=== PATIENT | male | born 1955 | race Caucasian/White ===

== ENCOUNTER → 2017-01-11 | Day surgery (SDC) | payer BC ==
[2017-01-07 14:53] VITALS: BMI 29.0
[~2017-01-11] VITALS: Ht 177.8 cm; Wt 93.2 kg
[~2017-01-11] MED LIST: ATROPINE SULFATE 0.1 MG/ML 5ML SYR IV PRN; DIPH25TA61 PO; EpHEDrine SULFATE INJ 50 MG/ML AMP IV PRN; LIDOCAINE HCL 2% 2 ML VIAL (20MG/ML) ONE; PROPOFOL IV EMULSION 10 MG/ML 20 ML VIAL IV ONE; REDCAP2 PO; SALI0.6515 NAE; SODIUM CHLORIDE 0.9% 500ML 500 ML IV ONE
[2017-01-11 08:30] VITALS: Ht 177.8 cm; Wt 93.2 kg
--- NOTE | 2017-01-11 08:42 | Endo History and Physical ---
History & Physical Date of Service: Jan 11, 2017. Chief Complaint: Odynophagia and Screening Referring Physician: Dr. Painting History of Present Illness 61 yo CM who presents for EGD secondary to odynophagia and screening colonoscopy. Past Surgical History Hx Cardiac Surgery: No Hx Internal Defibrillator: No Hx Pacemaker: No Hx Abdominal Surgery: No Hx of Implantable Prosthesis: No Hx Post-Op Nausea and Vomiting: No Hx Cancer Surgery: No Hx Thoracic Surgery: No Hx Orthopedic: No Hx Urinary Tract Surgery: No Family History None Social History Smoking Status: Never Smoker Hx Substance Use: No Hx Alcohol Use: No Allergies Coded Allergies: Penicillins (Verified Allergy, Unknown, SWELLING AND HIVES, 01/07/17) Current Medications Reported Home Medications Medications Dose Route/Sig Max Daily Dose Days Date Category Allergy (Diphenhydramine Hcl) 25 Mg Tab 1 Tab PO DAILY PRN 01/07/17 Reported Red Yeast Rice (Red Yeast Rice Extract) 600 Mg Cap 1 Cap PO DAILY 01/07/17 Reported Saline Mist (Saline) 0.65 % Spr 1 [place] AHSAN DAILY PRN 01/07/17 Reported Vital Signs Weight (Kilograms): 93.18 Height (Feet): 5 Height (Inches): 10 Physical Exam General Appearance: WD/WN, no apparent distress Respiratory/Chest: Auscultation: breath sounds normal Cardiovascular: Heart Auscultation: RRR Abdomen: Bowel Sounds: normal Inspection & Palpation: soft, non-distended, no tenderness, guarding & rebound Assessment and Plan Assessment: 61 yo CM who presents for EGD secondary to odynophagia and screening colonoscopy. Plan: Proceed with EGD and colonoscopy.
--- NOTE | 2017-01-11 09:52 | Discharge Instructions ---
Endoscopy Patient Instructions Date / Procedure(s) Performed Jan 11, 2017. Colonoscopy, EGD Allergy Information Coded Allergies: Penicillins (Verified Allergy, Unknown, SWELLING AND HIVES, 01/07/17) Discharge Date / Findings Jan 11, 2017. EGD: Esophageal stricture s/p dilation, Reflux esophagitis s/p biopsies Colonoscopy: Colon polyps, Internal hemorrhoids Medication Instructions 1) Start Protonix 40mg by mouth daily 1/2 hour prior to breakfast. 2) OK to resume all medications today as prescribed Reported Home Medications Medications Dose Route/Sig Max Daily Dose Days Date Category Allergy (Diphenhydramine Hcl) 25 Mg Tab 1 Tab PO DAILY PRN 01/07/17 Reported Red Yeast Rice (Red Yeast Rice Extract) 600 Mg Cap 1 Cap PO DAILY 01/07/17 Reported Saline Mist (Saline) 0.65 % Spr 1 [place] AHSAN DAILY PRN 01/07/17 Reported Provider Instructions Activity Restrictions - No exercising or heavy lifting for 24 hours. - Do not drink alcohol the day of the procedure. - Do not drive a car or operate machinery until the day after the procedure. - Do not make any important decisions or sign important papers in 24 hours after the procedure. Following Day: - Return to full activity which may include returning to work/school. Diet Start your diet with liquids and light foods (jello, soup, juice, toast). Then eat your usual diet if not nauseated. Treatment For Common After Affects For mild abdominal pain, bloating, or excessive gas: - Rest - Eat lightly - Lie on right side Follow-Up Information Follow-up with DR. FELA MONREAL as scheduled Anesthesia Information What You Should Know You have had a procedure that required some medicine to reduce anxiety and discomfort. This treatment is called moderate sedation. After receiving the treatment, you may be sleepy, but you will be able to breathe on your own. The effects of the treatment may last for several hours. Follow these instructions along with Activity/Diet recommendations noted above: * Do NOT do anything where dizziness or clumsiness would be dangerous. * Rest quietly at home today, then you can be up and about tomorrow. * Have a responsible person stay with you the rest of today. * You may have had an I.V. today. If so, you may take the dressing off later today. Recommendations Call your doctor if: * Trouble breathing * Continuous vomiting for more than 24 hours * Temperature above 101 degrees * Severe abdominal pain or bloating * Pain not relieved by pain medicine ordered * There is increased drainage or redness from any incision * A large amount of rectal bleeding greater than 2-3 tablespoons. (If you had a polyp/s removed or have hemorrhoids, a small amount of blood - from the rectum is to be expected.) * You have any unanswered questions or concerns. IN THE EVENT OF A SERIOUS EMERGENCY, GO TO THE NEAREST EMERGENCY ROOM Your discharge instructions were prepared by provider Anand Marion. Patient Instructions Signature Page Alex Bray Patient (or Guardian) Signature/Date: I have read and understand the instructions given to me by my caregivers. Caregiver/RN/Doctor Signature/Date: The above-named patient and/or guardian has received patient instructions on this date. + Original Patient Signature Page (only) stays with chart. Please make copy for patient.
--- NOTE | 2017-01-11 09:58 | GI REPORT ---
Procedure Date: 01/11/2017 8:51 AM Procedure: Colonoscopy Indications: Screening for colorectal malignant neoplasm Medicines: Monitored Anesthesia Care Complications: No immediate complications. Estimated Blood Loss: Estimated blood loss: none. Procedure: Pre-Anesthesia Assessment: - Prior to the procedure, a History and Physical was performed, and patient medications and allergies were reviewed. The patient's tolerance of previous anesthesia was also reviewed. The risks and benefits of the procedure and the sedation options and risks were discussed with the patient. All questions were answered, and informed consent was obtained. Prior Anticoagulants: The patient has taken no previous anticoagulant or antiplatelet agents. ASA Grade Assessment: II - A patient with mild systemic disease. After reviewing the risks and benefits, the patient was deemed in satisfactory condition to undergo the procedure. After I obtained informed consent, the scope was passed under direct vision. Throughout the procedure, the patient's blood pressure, pulse, and oxygen saturations were monitored continuously. The scope was introduced through the anus and advanced to the terminal ileum. The colonoscopy was performed without difficulty. The patient tolerated the procedure well. The quality of the bowel preparation was good. The terminal ileum, ileocecal valve, appendiceal orifice, and rectum were photographed. Findings: Two sessile polyps were found in the cecum. The polyps were 5 to 10 mm in size. These polyps were removed with a hot snare. Resection and retrieval were complete. Two sessile polyps were found in the sigmoid colon. The polyps were 5 to 8 mm in size. These polyps were removed with a hot snare. Resection and retrieval were complete. A 20 mm polyp was found in the sigmoid colon. The polyp was pedunculated. The polyp was removed via lift with 4 ml of [id number] Epinephrine and cut technique using a hot snare. Resection and retrieval were complete. To prevent bleeding after the polypectomy, one hemostatic clip was successfully placed (MR conditional). There was no bleeding at the end of the procedure. Non-bleeding internal hemorrhoids were found during retroflexion. The hemorrhoids were small. Impression: - Two 5 to 10 mm polyps in the cecum, removed with a hot snare. Resected and retrieved. - Two 5 to 8 mm polyps in the sigmoid colon, removed with a hot snare. Resected and retrieved. - One 20 mm polyp in the sigmoid colon, removed using lift and cut and a hot snare. Resected and retrieved. Clip (MR conditional) was placed. - Non-bleeding internal hemorrhoids. Recommendation: - Resume previous diet. - Continue present medications. - Repeat colonoscopy for surveillance based on pathology results. - Return to primary care physician as previously scheduled. Anand Marion, DO 01/11/2017 9:58:31 AM This report has been signed electronically. Note Initiated On: 01/11/2017 8:51 AM I attest to the content of the Intraoperative Record and orders documented therein, exceptions below
--- NOTE | 2017-01-11 10:02 | GI REPORT ---
Procedure Date: 01/11/2017 8:52 AM Procedure: Upper GI endoscopy Indications: Odynophagia Medicines: Monitored Anesthesia Care Complications: No immediate complications. Estimated Blood Loss: Estimated blood loss: none. Procedure: Pre-Anesthesia Assessment: - Prior to the procedure, a History and Physical was performed, and patient medications and allergies were reviewed. The patient's tolerance of previous anesthesia was also reviewed. The risks and benefits of the procedure and the sedation options and risks were discussed with the patient. All questions were answered, and informed consent was obtained. Prior Anticoagulants: The patient has taken no previous anticoagulant or antiplatelet agents. ASA Grade Assessment: II - A patient with mild systemic disease. After reviewing the risks and benefits, the patient was deemed in satisfactory condition to undergo the procedure. After obtaining informed consent, the endoscope was passed under direct vision. Throughout the procedure, the patient's blood pressure, pulse, and oxygen saturations were monitored continuously. The scope was introduced through the mouth, and advanced to the second part of duodenum. The upper GI endoscopy was accomplished without difficulty. The patient tolerated the procedure well. Findings: LA Grade C (one or more mucosal breaks continuous between tops of 2 or more mucosal folds, less than 75% circumference) esophagitis with no bleeding was found. Biopsies were taken with a cold forceps for histology. One moderate benign-appearing, intrinsic stenosis was found. This measured 1.4 cm (inner diameter) x 1 cm (in length) and was traversed. A TTS dilator was passed through the scope. Dilation with an 18-19-20 mm balloon (to a maximum balloon size of 20 mm) dilator was performed. The dilation site was examined and showed moderate improvement in luminal narrowing. The stomach was normal. The examined duodenum was normal. Impression: - LA Grade C reflux esophagitis. Biopsied. - Benign-appearing esophageal stenosis. Dilated. - Normal stomach. - Normal examined duodenum. Recommendation: - Resume previous diet. - Use Protonix (pantoprazole) 40 mg PO daily. - Continue present medications. - Await pathology results. - Return to primary care physician as previously scheduled. Anand Marion DO 01/11/2017 10:01:44 AM This report has been signed electronically. Note Initiated On: 01/11/2017 8:52 AM I attest to the content of the Intraoperative Record and orders documented therein, exceptions below
--- NOTE | 2017-01-11 10:08 | Anesthesiology Progress Note ---
Anesthesia Post Op Note Date & Time Jan 11, 2017 at 10:08 Vital Signs Pain Intensity: 0 Vital Signs Past 12 Hours Date Time Temp Pulse Resp B/P (MAP) Pulse Ox O2 Delivery O2 Flow Rate FiO2 01/11/17 09:53 71 16 119/79 (92) 97 Room Air 01/11/17 08:41 36.6 91 20 163/95 (117) 98 Room Air Notes Mental Status: alert / awake / arousable, participated in evaluation Pt Amnestic to Procedure: Yes Nausea / Vomiting: adequately controlled Pain: adequately controlled Airway Patency, RR, SpO2: stable & adequate BP & HR: stable & adequate Hydration State: stable & adequate Anesthetic Complications: no major complications apparent
[2017-01-11 10:25] VITALS: BP 126/97; PULSE 55; O2SAT 97
== END | disposition home or self-care (01) ==
LOC: C.GI 08:18
PROVIDERS: ATTEND Internal Medicine
DX: Z12.11 Encounter for screening for malignant neoplasm of colon (principal); D12.0 Benign neoplasm of cecum; D12.5 Benign neoplasm of sigmoid colon; K20.9 Esophagitis, unspecified; K64.8 Other hemorrhoids; K21.0 Gastro-esophageal reflux disease with esophagitis; K22.2 Esophageal obstruction

== ENCOUNTER → 2017-07-01 | Day surgery (SDC) | payer BC ==
[~2017-07-01] VITALS: Ht 177.8 cm; Wt 95.5 kg
[~2017-07-01] MED LIST changes: -ATROPINE SULFATE 0.1 MG/ML 5ML SYR IV PRN; -EpHEDrine SULFATE INJ 50 MG/ML AMP IV PRN; +PANT40TA PO; -PROPOFOL IV EMULSION 10 MG/ML 20 ML VIAL IV ONE; +PROPOFOL IV EMULSION 10 MG/ML 20 ML VIAL ONE
[2017-07-01 12:10] VITALS: Ht 177.8 cm; Wt 95.5 kg
--- NOTE | 2017-07-01 12:33 | Endo History and Physical ---
History & Physical Date of Service: July 01, 2017. Chief Complaint: HX OF POLYPS 6 MONTH FOLLOW UP Referring Physician: DR MONREAL History of Present Illness 62 yo CM who presents for colonoscopy secondary to history of colon polyps. Past Surgical History Hx Cardiac Surgery: No Hx Internal Defibrillator: No Hx Pacemaker: No Hx Abdominal Surgery: No Hx of Implantable Prosthesis: No Hx Post-Op Nausea and Vomiting: No Hx Cancer Surgery: No Hx Thoracic Surgery: No Hx Orthopedic: No Hx Urinary Tract Surgery: No Family History None Social History Smoking Status: Former Smoker Hx Substance Use: No Hx Alcohol Use: Yes (OCCASIONAL) Allergies Coded Allergies: Penicillins (Verified Allergy, Unknown, SWELLING AND HIVES, 07/01/17) Current Medications Reported Home Medications Medications Dose Route/Sig Max Daily Dose Days Date Category Protonix (Pantoprazole Sodium) 40 Mg Tab 40 Mg PO DAILY 06/23/17 Reported Allergy (Diphenhydramine Hcl) 25 Mg Tab 1 Tab PO DAILY PRN 01/07/17 Reported Red Yeast Rice (Red Yeast Rice Extract) 600 Mg Cap 1 Cap PO DAILY 01/07/17 Reported Saline Mist (Saline) 0.65 % Spr 1 [place] AHSAN DAILY PRN 01/07/17 Reported Vital Signs Weight (Kilograms): 95.45 Height (Feet): 5 Height (Inches): 10 Date Time Temp Pulse Resp B/P (MAP) Pulse Ox O2 Delivery O2 Flow Rate FiO2 07/01/17 12:16 36.5 66 18 170/92 (118) 97 Room Air Physical Exam General Appearance: WD/WN, no apparent distress Respiratory/Chest: Auscultation: breath sounds normal Cardiovascular: Heart Auscultation: RRR Abdomen: Bowel Sounds: normal Inspection & Palpation: soft, non-distended, no tenderness, guarding & rebound Assessment and Plan Assessment: 62 yo CM who presents for colonoscopy secondary to history of colon polyps. Plan: Proceed with colonoscopy.
--- NOTE | 2017-07-01 13:19 | Discharge Instructions ---
Endoscopy Patient Instructions Date / Procedure(s) Performed July 01, 2017. Colonoscopy Allergy Information Coded Allergies: Penicillins (Verified Allergy, Unknown, SWELLING AND HIVES, 07/01/17) Discharge Date / Findings July 01, 2017. Colon polyps Diverticulosis Internal hemorrhoids Medication Instructions OK to resume all medications today as prescribed Reported Home Medications Medications Dose Route/Sig Max Daily Dose Days Date Category Protonix (Pantoprazole Sodium) 40 Mg Tab 40 Mg PO DAILY 06/23/17 Reported Allergy (Diphenhydramine Hcl) 25 Mg Tab 1 Tab PO DAILY PRN 01/07/17 Reported Red Yeast Rice (Red Yeast Rice Extract) 600 Mg Cap 1 Cap PO DAILY 01/07/17 Reported Saline Mist (Saline) 0.65 % Spr 1 [place] AHSAN DAILY PRN 01/07/17 Reported Provider Instructions Activity Restrictions - No exercising or heavy lifting for 24 hours. - Do not drink alcohol the day of the procedure. - Do not drive a car or operate machinery until the day after the procedure. - Do not make any important decisions or sign important papers in 24 hours after the procedure. Following Day: - Return to full activity which may include returning to work/school. Diet Start your diet with liquids and light foods (jello, soup, juice, toast). Then eat your usual diet if not nauseated. Treatment For Common After Affects For mild abdominal pain, bloating, or excessive gas: - Rest - Eat lightly - Lie on right side Follow-Up Information Follow-up with DR MONREAL as scheduled Anesthesia Information What You Should Know You have had a procedure that required some medicine to reduce anxiety and discomfort. This treatment is called moderate sedation. After receiving the treatment, you may be sleepy, but you will be able to breathe on your own. The effects of the treatment may last for several hours. Follow these instructions along with Activity/Diet recommendations noted above: * Do NOT do anything where dizziness or clumsiness would be dangerous. * Rest quietly at home today, then you can be up and about tomorrow. * Have a responsible person stay with you the rest of today. * You may have had an I.V. today. If so, you may take the dressing off later today. Recommendations Call your doctor if: * Trouble breathing * Continuous vomiting for more than 24 hours * Temperature above 101 degrees * Severe abdominal pain or bloating * Pain not relieved by pain medicine ordered * There is increased drainage or redness from any incision * A large amount of rectal bleeding greater than 2-3 tablespoons. (If you had a polyp/s removed or have hemorrhoids, a small amount of blood - from the rectum is to be expected.) * You have any unanswered questions or concerns. IN THE EVENT OF A SERIOUS EMERGENCY, GO TO THE NEAREST EMERGENCY ROOM Your discharge instructions were prepared by provider Anand Marion. Patient Instructions Signature Page Alex Bray Patient (or Guardian) Signature/Date: I have read and understand the instructions given to me by my caregivers. Caregiver/RN/Doctor Signature/Date: The above-named patient and/or guardian has received patient instructions on this date. + Original Patient Signature Page (only) stays with chart. Please make copy for patient.
--- NOTE | 2017-07-01 13:28 | GI REPORT ---
Patient Name: Alex Bray Procedure Date: 07/01/2017 12:24 PM Date of : 1955 Admit Type: Outpatient Age: 62 Gender: Male Attending MD: Anand Marion DO Procedure: Colonoscopy Providers: Anand Marion DO Referring MD: Surinder Painting Indications: High risk colon cancer surveillance: Personal history of colonic polyps, Last colonoscopy: December 2016 Medicines: Monitored Anesthesia Care Complications: No immediate complications. Estimated Blood Loss: Estimated blood loss: none. Procedure: Pre-Anesthesia Assessment: - Prior to the procedure, a History and Physical was performed, and patient medications and allergies were reviewed. The patient's tolerance of previous anesthesia was also reviewed. The risks and benefits of the procedure and the sedation options and risks were discussed with the patient. All questions were answered, and informed consent was obtained. Prior Anticoagulants: The patient has taken no previous anticoagulant or antiplatelet agents. ASA Grade Assessment: II - A patient with mild systemic disease. After reviewing the risks and benefits, the patient was deemed in satisfactory condition to undergo the procedure. After I obtained informed consent, the scope was passed under direct vision. Throughout the procedure, the patient's blood pressure, pulse, and oxygen saturations were monitored continuously. The Scope was introduced through the anus and advanced to the terminal ileum. The colonoscopy was performed without difficulty. The patient tolerated the procedure well. The quality of the bowel preparation was good. The terminal ileum, ileocecal valve, appendiceal orifice, and rectum were photographed. Findings: The perianal and digital rectal examinations were normal. A 5 mm polyp was found in the transverse colon. The polyp was sessile. The polyp was removed with a hot snare. Resection and retrieval were complete. A 5 mm polyp was found in the sigmoid colon at site of prior polypectomy site. The polyp was sessile. The polyp was removed with a hot snare. Resection and retrieval were complete. Multiple small-mouthed diverticula were found in the sigmoid colon. Non-bleeding internal hemorrhoids were found during retroflexion. The hemorrhoids were small. Impression: - One 5 mm polyp in the transverse colon, removed with a hot snare. Resected and retrieved. - One 5 mm polyp in the sigmoid colon, removed with a hot snare. Resected and retrieved. - Diverticulosis in the sigmoid colon. - Non-bleeding internal hemorrhoids. Recommendation: - Resume previous diet. - Continue present medications. - Repeat colonoscopy for surveillance based on pathology results. - Return to primary care physician as previously scheduled. Anand Marion, DO 07/01/2017 1:28:06 PM This report has been signed electronically. Note Initiated On: 07/01/2017 12:24 PM Number of Addenda: 0 I attest to the content of the Intraoperative Record and orders documented therein, exceptions below {[id number]}
[2017-07-01 13:58] VITALS: BP 152/64; PULSE 72; O2SAT 100
--- NOTE | 2017-07-01 14:09 | Anesthesiology Progress Note ---
Anesthesia Post Op Note Date & Time July 01, 2017 at 14:08 Vital Signs Vital Signs Past 12 Hours Date Time Temp Pulse Resp B/P (MAP) Pulse Ox O2 Delivery O2 Flow Rate FiO2 07/01/17 13:58 72 20 152/64 (93) 100 Room Air 07/01/17 13:40 60 20 161/91 (114) 98 Room Air 07/01/17 13:25 71 20 117/64 (81) 97 Room Air 07/01/17 12:16 36.5 66 18 170/92 (118) 97 Room Air Notes Mental Status: alert / awake / arousable, participated in evaluation Pt Amnestic to Procedure: Yes Nausea / Vomiting: adequately controlled Pain: adequately controlled Airway Patency, RR, SpO2: stable & adequate BP & HR: stable & adequate Hydration State: stable & adequate Anesthetic Complications: no major complications apparent
== END | disposition home or self-care (01) ==
LOC: C.GI 11:55
PROVIDERS: ATTEND Internal Medicine
DX: Z09 Encounter for follow-up examination after completed treatment for conditions other than malignant neoplasm (principal); Z86.010 Personal history of colon polyps; D12.3 Benign neoplasm of transverse colon; K63.5 Polyp of colon; K57.30 Diverticulosis of large intestine without perforation or abscess without bleeding; K64.8 Other hemorrhoids; Z88.0 Allergy status to penicillin; M19.90 Unspecified osteoarthritis, unspecified site; Z87.891 Personal history of nicotine dependence

== ENCOUNTER 2018-06-22 07:27 | Inpatient (IN) ==
[2018-06-22] MEDS ORDERED: ONDANSETRON INJ 2 MG/ML 2 ML VIAL IV STA (07:40)
--- NOTE | 2018-06-22 07:40 | Emergency Department Note ---
History of Present Illness General Chief complaint: Vomiting Stated complaint: DIARRHEA,VOMITING (3 DAYS) Time Seen by Provider: 06/22/18 07:34 History of Present Illness Maximum Pain Intensity: 5 63-year-old male who presents to emergency department with his for evaluation of persistent watery diarrhea and vomiting for the past 3 days. The patient reports that he initially developed diarrhea Wednesday evening. By Wednesday morning, he had persistent vomiting. The patient now reports weakness. He has also noticed brownish appearing vomit. He does report a prior history of GERD, but has not had any recent symptoms of such. He has not noticed any blood or melena stools. Patient has had chills but has not checked his temperature at home. The patient also reports some mild shortness of breath with his weakness. The patient denies prior history of GI bleed. He is status post laparoscopic cholecystectomy last fall. His last EGD and colonoscopy performed approximately 1.[address] Marion, and was normal. The patient denies any recent significant consumption of caffeine, alcohol or NSAIDs. The patient rates his overall discomfort a 5 out of 10. Home Medications Home Medications Medication Instructions Recorded Confirmed Type diphenhydramine HCl [Benadryl] 25 mg PO DIRECTED PRN 12/09/17 06/22/18 History metoprolol tartrate 25 mg PO BID 12/09/17 06/22/18 History pantoprazole [Protonix] 40 mg PO DAILY 12/09/17 06/22/18 History red yeast rice 600 mg PO DAILY 12/09/17 06/22/18 History sodium chloride [Saline Nasal] 1 spray INTRANASAL DIRECTED PRN 12/09/17 06/22/18 History lisinopril-hydrochlorothiazide 1 tab PO DAILY 06/22/18 06/22/18 History Allergies Allergy/AdvReac Type Severity Reaction Status Date / Time Penicillins Allergy Severe SWELLING Verified 06/22/18 08:00 AND HIVES Past Med/Surg History Medical History Renal mass Hyperlipidemia GERD (gastroesophageal reflux disease) Uncontrolled hypertension (Acute) Gallstone pancreatitis (Acute) Acid reflux Arthritis Surgical History Status post cholecystectomy Social History Preferred Language: Uzbek Communication Ability: Effective Visual Impairment: Limited Nurse Consultant Required: No Beliefs That Will Affect Care: Judaism Judaism Beliefs: Scientology marital status: Current Living Situation: Spouse current occupational status: employed Other Information That Helps Us Care for You: No Feels Safe at Home: Yes Safety Concerns: Feels Safe At This Time Smoking Status: Never smoker Do You Dip or Chew Tobacco: No Second Hand Exposure: No Tobacco Cessation Education Requested by Patient: No Hx Alcohol Use: No Hx Substance Use: No Review of Systems HEENT: Denies dizziness, visual problems, hearing loss, tinnitus. Denies difficulty swallowing or oral lesions. PULMONARY: Denies cough, shortness of breath, sputum production or hemoptysis. CARDIOVASCULAR: Denies chest pain, palpitations, dyspnea on exertion, orthopnea or peripheral edema. GASTROINTESTINAL: See HPI. GENITOURINARY: Denies dysuria, frequency, urgency or nocturia. NEUROLOGIC: Denies history of epilepsy, CVA, TIA or chronic headaches. MUSCULOSKELETAL: Denies history of significant joint tenderness/swelling. SKIN: Denies rashes or lesions. PSYCHIATRIC: Denies history of depression or mental illness. ENDOCRINE: Denies history of diabetes or thyroid disorders. Physical Exam Vital Signs Vital Signs - 24 hr 06/22/18 07:32 06/22/18 08:30 06/22/18 09:35 Temperature 36.3 C L Temperature Source Oral Sepsis Recent Fever Within 48 Hours No Sepsis Action Taken by Nursing No Action Required Pulse Rate 90 Pulse Rate [Apical] 83 81 Pulse Rhythm [Apical] Pulse Strength [Apical] Respiratory Rate 20 16 16 Respiratory Effort / Characteristics Non-Labored Respiratory Depth Normal Respiratory Pattern Blood Pressure 87/55 L Blood Pressure [Left Arm] 88/35 L 108/51 L Blood Pressure [Right Arm] Blood Pressure Mean 65 Blood Pressure Mean [Left Arm] 52 70 Blood Pressure Mean [Right Arm] Blood Pressure Position [Left Arm] Blood Pressure Position [Right Arm] Pulse Oximetry 97 Oxygen Delivery Method 06/22/18 10:15 06/22/18 11:15 06/22/18 11:30 Temperature 36.5 C Temperature Source Oral Sepsis Recent Fever Within 48 Hours Sepsis Action Taken by Nursing Pulse Rate 73 Pulse Rate [Apical] 74 65 Pulse Rhythm [Apical] Regular Pulse Strength [Apical] Normal Respiratory Rate 16 17 Respiratory Effort / Characteristics Non-Labored Spontaneous Respiratory Depth Normal Respiratory Pattern Regular Blood Pressure Blood Pressure [Left Arm] 107/55 L 111/67 Blood Pressure [Right Arm] Blood Pressure Mean Blood Pressure Mean [Left Arm] 72 81 Blood Pressure Mean [Right Arm] Blood Pressure Position [Left Arm] Sitting Blood Pressure Position [Right Arm] Pulse Oximetry 95 Oxygen Delivery Method Room Air 06/22/18 15:14 Temperature 36.3 C L Temperature Source Oral Sepsis Recent Fever Within 48 Hours Sepsis Action Taken by Nursing Pulse Rate Pulse Rate [Apical] 66 Pulse Rhythm [Apical] Pulse Strength [Apical] Respiratory Rate 18 Respiratory Effort / Characteristics Respiratory Depth Respiratory Pattern Blood Pressure Blood Pressure [Left Arm] Blood Pressure [Right Arm] 110/64 Blood Pressure Mean Blood Pressure Mean [Left Arm] Blood Pressure Mean [Right Arm] 79 Blood Pressure Position [Left Arm] Blood Pressure Position [Right Arm] Lying Pulse Oximetry 93 Oxygen Delivery Method Room Air CONSTITUTIONAL: Healthy and well nourished. Alert and oriented X 3. HEENT: Normocephalic, atraumatic. Pupils equal, round and reactive. Ears and nares are clear. No scleral icterus or conjunctival injection/pallor. Mucous membranes are dry. No posterior pharyngeal erythema or tonsillar hypertrophy. NECK: Full active range of motion without discomfort. LYMPHATICS: No cervical chain adenopathy. RESPIRATORY: Clear to auscultation bilaterally with no wheezing, crackles, rhonchi or stridor. CARDIOVASCULAR: Regular rate and rhythm with no murmurs, rubs or gallops. GASTROINTESTINAL: Bowel sounds present in all quadrants. Patient has generalized tenderness to palpation of the abdomen without any focal findings. Negative McBurney's point tenderness. Negative CVA tenderness. No rigidity, guarding or rebound. MUSCULOSKELETAL: Full range of motion of all joints without discomfort. INTEGUMENTARY: No rash or other significant dermatologic conditions noted. HEMATOLOGIC: No ecchymosis or petechiae. PSYCHIATRIC: Positive affect. NEUROLOGIC: Cranial nerves II-XII grossly intact. No focal neurologic deficits noted. Course Patient history and physical exam were performed. Nurse's notes were reviewed. Vital signs were reviewed, showing hypertension with a blood pressure of 87/55. The patient is afebrile. IV access was established, and labs were drawn. The patient was hydrated with 2 L of normal saline. He was also administered IV Zofran. Review of labs shows a markedly elevated leukocytosis over 29,000 with left shift and bandemia. Review of labs shows a creatinine of 7.78 and BUN of 107. Sodium is 133, and glucose is 139. Lipase is mildly elevated at 590, otherwise LFTs are normal. Troponin is normal, and ECG did not show any acute findings. The patient was unable to provide a urine sample. The patient did report improvement of symptoms after his first liter of normal saline and Zofran. Recheck of his blood pressure was normal. The patient was tolerating p.o. fluids. The case was discussed with Dr. Landry, ED attending physician, who also evaluated the patient and agrees with hospitalist consultation/admission. The case was discussed with Dr. Reed, [facility] hospitalist. Please see hospitalist service dictations for further treatment and final disposition. Administered Medications Sodium Bicarbonate 75 meq/ (Dextrose/Sodium Chloride) 1,075 mls @ 125 mls/hr IV .Q8H36M PRESTON Stop: 07/22/18 13:59 Last Admin: 06/22/18 14:05 Dose: 125 mls/hr Documented by: [id number] Discontinued Medications Sodium Chloride (Nss 1000ml) 2,000 mls @ 999 mls/hr IV .Q2H1M PRESTON Stop: 06/22/18 09:45 Last Infusion: 06/22/18 09:46 Dose: 0 mls/hr Documented by: [id number] Admin: 06/22/18 07:48 Dose: 999 mls/hr Documented by: [id number] Sodium Chloride (Nss 1000ml) 1,000 mls @ 999 mls/hr IV .Q1H1M PRESTON Stop: 06/22/18 14:00 Last Infusion: 06/22/18 14:05 Dose: 0 mls/hr Documented by: [id number] Admin: 06/22/18 13:00 Dose: 999 mls/hr Documented by: [id number] Infusion: 06/22/18 13:00 Dose: 999 mls/hr Documented by: [id number] Admin: 06/22/18 12:59 Dose: 999 mls/hr Documented by: [id number] Ondansetron HCl (Zofran) 4 mg IV NOW STA Stop: 06/22/18 07:41 Last Admin: 06/22/18 07:54 Dose: 4 mg Documented by: [id number] Medical Decision Making Medical Records Attestation: I reviewed the patient's medical records. Home Medications Current Medication List: was personally reviewed by me Laboratory Data Attestation: I reviewed the patient's lab results. Result diagrams: 06/22/18 13:57 06/22/18 13:57 Lab Results 06/22/18 06/22/18 06/22/18 Range/Units 07:45 07:45 08:10 WBC 29.34 H (4.8-10.8) K/uL RBC 6.18 H (4.7-6.1) M/uL Hgb 17.6 (14.0-18.0) g/dL Hct 49.4 (42-52) % MCV 79.9 L (80-100) fL MCH 28.5 (25-34) pg MCHC 35.6 (32-36) g/dL RDW Std Deviation 40.8 (36.4-46.3) fL RDW Coeff of Yuri 14.2 (11.5-14.5) % Plt Count 347 (130-400) K/uL MPV 11.7 H (7.4-10.4) fL Immature Gran % (Auto) 0.4 % Neut % (Auto) 87.1 % Lymph % (Auto) 4.9 % [place] % (Auto) 6.6 % Eos % (Auto) 0.9 % Baso % (Auto) 0.1 % Immature Gran # (Auto) 0.12 H (0.00-0.02) K/uL Neut # (Auto) 25.57 H (1.4-6.5) K/uL Lymph # (Auto) 1.43 (1.2-3.4) K/uL [place] # (Auto) 1.94 H (0.11-0.59) K/uL Eos # (Auto) 0.26 (0-0.5) K/uL Baso # (Auto) 0.02 (0-0.2) K/uL PT (9.0-12.0) Seconds INR (0.9-1.1) APTT (21.0-31.0) Seconds PTT Ratio Sodium 133 L (136-145) mmol/L Potassium 4.2 (3.5-5.1) mmol/L Chloride 99 (98-107) mmol/L Carbon Dioxide 20 L (21-32) mmol/L Anion Gap 13.0 H (3-11) BUN 107 H (7-18) mg/dl Creatinine 7.78 H* (0.6-1.4) mg/dl Est Cr Clr Drug Dosing Not Reportable Est GFR ( Amer) 7.6 Est GFR (Non-Af Amer) 6.6 BUN/Creatinine Ratio 13.9 (10-20) Glucose 139 H (70-99) mg/dl Calcium 8.8 (8.5-10.1) mg/dl Magnesium 2.3 (1.8-2.4) mg/dl Total Bilirubin 1.0 (0.2-1) mg/dl Direct Bilirubin (0-0.2) mg/dl AST 13 L (15-37) U/L ALT 22 (12-78) U/L Alkaline Phosphatase 134 H (45-117) U/L POC Troponin I < 0.03 (0-0.045) ng/ml NT-Pro-B Natriuret Pep 193 (0-900) pg/ml Total Protein 8.9 H (6.4-8.2) gm/dl Albumin 4.1 (3.4-5.0) gm/dl Globulin 4.8 H (2.5-4.0) gm/dl Albumin/Globulin Ratio 0.9 (0.9-2) Lipase 590 H (73-393) U/L Urine Color Urine Appearance (Clear) Urine pH (4.5-7.5) Ur Specific Calvin (1.000-1.030) Urine Protein (Negative) Urine Glucose (UA) (Negative) Urine Ketones (Negative) Urine Blood (Negative) Urine Nitrite (Negative) Urine Bilirubin (Negative) Urine Urobilinogen (Negative) Ur Leukocyte Esterase (Negative) Urine WBC (Auto) (0-5) /hpf Urine RBC (Auto) (0-4) /hpf U Hyaline Cast (Auto) (0-5) /lpf U Epithel Cells (Auto) (0-5) /lpf Urine Bacteria (Auto) (Negative) Calcium Oxalate Crystal (None Prsent) Urine Mucus (None Prsent) Urine Yeast 06/22/18 06/22/18 06/22/18 Range/Units 10:45 13:57 13:57 WBC 17.50 H D (4.8-10.8) K/uL RBC 4.83 (4.7-6.1) M/uL Hgb 12.9 L D (14.0-18.0) g/dL Hct 38.8 L (42-52) % MCV 80.3 (80-100) fL MCH 26.7 (25-34) pg MCHC 33.2 (32-36) g/dL RDW Std Deviation 41.1 (36.4-46.3) fL RDW Coeff of Yuri 13.9 (11.5-14.5) % Plt Count 209 (130-400) K/uL MPV 10.7 H (7.4-10.4) fL Immature Gran % (Auto) 0.2 % Neut % (Auto) 84.8 % Lymph % (Auto) 8.3 % [place] % (Auto) 5.2 % Eos % (Auto) 1.4 % Baso % (Auto) 0.1 % Immature Gran # (Auto) 0.04 H (0.00-0.02) K/uL Neut # (Auto) 14.83 H (1.4-6.5) K/uL Lymph # (Auto) 1.46 (1.2-3.4) K/uL [place] # (Auto) 0.91 H (0.11-0.59) K/uL Eos # (Auto) 0.25 (0-0.5) K/uL Baso # (Auto) 0.01 (0-0.2) K/uL PT (9.0-12.0) Seconds INR (0.9-1.1) APTT (21.0-31.0) Seconds PTT Ratio Sodium 137 (136-145) mmol/L Potassium 3.9 (3.5-5.1) mmol/L Chloride 108 H (98-107) mmol/L Carbon Dioxide 16 L (21-32) mmol/L Anion Gap 13.0 H (3-11) BUN 99 H (7-18) mg/dl Creatinine 5.94 H* D (0.6-1.4) mg/dl Est Cr Clr Drug Dosing 14.8 Est GFR ( Amer) 10.6 Est GFR (Non-Af Amer) 9.1 BUN/Creatinine Ratio 16.7 (10-20) Glucose 138 H (70-99) mg/dl Calcium 7.7 L (8.5-10.1) mg/dl Magnesium 2.0 (1.8-2.4) mg/dl Total Bilirubin 0.5 D (0.2-1) mg/dl Direct Bilirubin 0.1 (0-0.2) mg/dl AST 9 L (15-37) U/L ALT 15 (12-78) U/L Alkaline Phosphatase 87 (45-117) U/L POC Troponin I (0-0.045) ng/ml NT-Pro-B Natriuret Pep (0-900) pg/ml Total Protein 6.1 L D (6.4-8.2) gm/dl Albumin 2.8 L (3.4-5.0) gm/dl Globulin (2.5-4.0) gm/dl Albumin/Globulin Ratio (0.9-2) Lipase (73-393) U/L Urine Color Yellow Urine Appearance Cloudy H (Clear) Urine pH 5.0 (4.5-7.5) Ur Specific Calvin 1.023 (1.000-1.030) Urine Protein Trace H (Negative) Urine Glucose (UA) Negative (Negative) Urine Ketones Trace H (Negative) Urine Blood Negative (Negative) Urine Nitrite Negative (Negative) Urine Bilirubin Negative (Negative) Urine Urobilinogen Negative (Negative) Ur Leukocyte Esterase Trace H (Negative) Urine WBC (Auto) 5-10 H (0-5) /hpf Urine RBC (Auto) 0-4 (0-4) /hpf U Hyaline Cast (Auto) 5-10 H (0-5) /lpf U Epithel Cells (Auto) 20-30 H (0-5) /lpf Urine Bacteria (Auto) 1+ H (Negative) Calcium Oxalate Crystal Present H (None Prsent) Urine Mucus Present H (None Prsent) Urine Yeast Not Reportable 06/22/18 Range/Units 13:57 WBC (4.8-10.8) K/uL RBC (4.7-6.1) M/uL Hgb (14.0-18.0) g/dL Hct (42-52) % MCV (80-100) fL MCH (25-34) pg MCHC (32-36) g/dL RDW Std Deviation (36.4-46.3) fL RDW Coeff of Yuri (11.5-14.5) % Plt Count (130-400) K/uL MPV (7.4-10.4) fL Immature Gran % (Auto) % Neut % (Auto) % Lymph % (Auto) % [place] % (Auto) % Eos % (Auto) % Baso % (Auto) % Immature Gran # (Auto) (0.00-0.02) K/uL Neut # (Auto) (1.4-6.5) K/uL Lymph # (Auto) (1.2-3.4) K/uL [place] # (Auto) (0.11-0.59) K/uL Eos # (Auto) (0-0.5) K/uL Baso # (Auto) (0-0.2) K/uL PT 11.5 (9.0-12.0) Seconds INR 1.1 (0.9-1.1) APTT 29.4 (21.0-31.0) Seconds PTT Ratio 1.1 Sodium (136-145) mmol/L Potassium (3.5-5.1) mmol/L Chloride (98-107) mmol/L Carbon Dioxide (21-32) mmol/L Anion Gap (3-11) BUN (7-18) mg/dl Creatinine (0.6-1.4) mg/dl Est Cr Clr Drug Dosing Est GFR ( Amer) Est GFR (Non-Af Amer) BUN/Creatinine Ratio (10-20) Glucose (70-99) mg/dl Calcium (8.5-10.1) mg/dl Magnesium (1.8-2.4) mg/dl Total Bilirubin (0.2-1) mg/dl Direct Bilirubin (0-0.2) mg/dl AST (15-37) U/L ALT (12-78) U/L Alkaline Phosphatase (45-117) U/L POC Troponin I (0-0.045) ng/ml NT-Pro-B Natriuret Pep (0-900) pg/ml Total Protein (6.4-8.2) gm/dl Albumin (3.4-5.0) gm/dl Globulin (2.5-4.0) gm/dl Albumin/Globulin Ratio (0.9-2) Lipase (73-393) U/L Urine Color Urine Appearance (Clear) Urine pH (4.5-7.5) Ur Specific [place] (1.000-1.030) Urine Protein (Negative) Urine Glucose (UA) (Negative) Urine Ketones (Negative) Urine Blood (Negative) Urine Nitrite (Negative) Urine Bilirubin (Negative) Urine Urobilinogen (Negative) Ur Leukocyte Esterase (Negative) Urine WBC (Auto) (0-5) /hpf Urine RBC (Auto) (0-4) /hpf U Hyaline Cast (Auto) (0-5) /lpf U Epithel Cells (Auto) (0-5) /lpf Urine Bacteria (Auto) (Negative) Calcium Oxalate Crystal (None Prsent) Urine Mucus (None Prsent) Urine Yeast Imaging Data Attestation: I personally reviewed and interpreted this imaging study as follows: My Impression: My interpretation of a portable chest x-ray does not show any consolidations, pneumothorax or obvious widened mediastinum. Cardiomegaly is noted. Radiologist report was reviewed. Radiologist's Impression: XR chest 1V portable HISTORY: Shortness of breath. COMPARISON: Chest 12/16/2017. FINDINGS: There are low lung volumes. No pneumothorax. No pleural effusions. The heart remains mildly enlarged. There is mild central pulmonary vascular congestion without overt edema. A few left basilar linear densities favor subsegmental atelectasis. No focal lung consolidations to suggest pneumonia. IMPRESSION: Mild cardiomegaly with mild congestive change. ECG Data Attestation: I personally reviewed and interpreted this ECG as follows: Rate (beats per minute): 69 Rhythm: normal sinus Blood Pressure Blood Pressure Findings: Low blood pressure (Initially 88/35 in triage) MDM Narrative Patient presents to the emergency department with primary complaint of persistent nausea, vomiting and diarrhea for the past 3 days. Patient does have an elevated creatinine, indicating an acute kidney injury likely secondary to dehydration. It is noted that his abdominal exam is benign on exam, therefore further CT imaging of the abdomen was deferred. Patient is status post cholecy stectomy. Laboratory studies are not suggestive of acute pancreatitis or hepatitis. The patient was unable to provide a urine sample to rule out UTI, however I do not suspect this is the case. He has no CVA tenderness to suggest pyelonephritis. Impression & Plan Acute kidney injury, Acute dehydration, Nausea, vomiting and diarrhea Discharge Plan Visit Data *Final* Discharge Date/Time: 06/22/18 10:46 Chief Complaint: Vomiting Stated Complaint: DIARRHEA,VOMITING (3 DAYS) ED Provider: Alan Landry ED Midlevel Provider: Lopez Light Discharge Problem: Acute kidney injury, Acute dehydration, Nausea, vomiting and diarrhea Patient Disposition: Admitted As Inpatient Discharge Instructions Interventions: ED Discharge Assessment Last Done: 06/22/18 10:46
[2018-06-22] MEDS ORDERED: SODIUM CHLORIDE 0.9% 1000ML 2,000 ML IV SCH (07:45)
--- NOTE | 2018-06-22 08:12 | XRay Report ---
XR chest 1V portable HISTORY: Shortness of breath. COMPARISON: Chest 12/16/2017. FINDINGS: There are low lung volumes. No pneumothorax. No pleural effusions. The heart remains mildly enlarged. There is mild central pulmonary vascular congestion without overt edema. A few left basila r linear densities favor subsegmental atelectasis. No focal lung consolidations to suggest pneumonia. IMPRESSION: Mild cardiomegaly with mild congestive change. Electronically signed by: Ha Lewis M.D. 06/22/2018 8:11 AM
[2018-06-22 08:36] LABS: Hematocrit (blood only) 49.4 % (42-52); Hemoglobin 17.6 g/dL (14.0-18.0); Mean Corpuscular Hgb Conc 35.6 g/dL (32-36); Mean Corpuscular Volume 79.9 fL (80-100); Mean Platelet Volume 11.7 fL (7.4-10.4); Platelet Count 347 K/uL (130-400); RDW Coefficient of Variation 14.2 % (11.5-14.5); RDW Standard Deviation 40.8 fL (36.4-46.3); Red Blood Count 6.18 M/uL (4.7-6.1); White Blood Count 29.34 K/uL (4.8-10.8)
[2018-06-22 08:42] LABS: Alanine Aminotransferase 22 U/L (12-78); Albumin Globulin Ratio 0.9 (0.9-2); Albumin Level 4.1 gm/dl (3.4-5.0); Alkaline Phosphatase 134 U/L (45-117); Aspartate Aminotransferase 13 U/L (15-37); BUN Creatinine Ratio 13.9 (10-20); Blood Urea Nitrogen 107 mg/dl (7-18); Calcium 8.8 mg/dl (8.5-10.1); Carbon Dioxide 20 mmol/L (21-32); Chloride 99 mmol/L (98-107); Est GFR (African American) 7.6; Est GFR (Non-African American) 6.6; Globulin 4.8 gm/dl (2.5-4.0); Glucose 139 mg/dl (70-99); Magnesium 2.3 mg/dl (1.8-2.4); Potassium 4.2 mmol/L (3.5-5.1); Sodium 133 mmol/L (136-145); Total Protein 8.9 gm/dl (6.4-8.2)
[2018-06-22 08:46] LABS: Basophils # (auto) 0.02 K/uL (0-0.2); Basophils % (auto) 0.1 %; Eosinophils # (auto) 0.26 K/uL (0-0.5); Eosinophils % (auto) 0.9 %; Immature Granulocytes # (auto) 0.12 K/uL (0.00-0.02); Immature Granulocytes % (auto) 0.4 %; Lymphocytes # (auto) 1.43 K/uL (1.2-3.4); Lymphocytes % (auto) 4.9 %; Monocytes # (auto) 1.94 K/uL (0.11-0.59); Monocytes % (auto) 6.6 %; Neutrophils # (auto) 25.57 K/uL (1.4-6.5); Neutrophils % (auto) 87.1 %
[2018-06-22 08:47] LABS: NT Pro B Type Natriuretic Pept 193 pg/ml (0-900)
[2018-06-22] MEDS ORDERED: ACETAMINOPHEN 325 MG TAB PO PRN (09:35)
[2018-06-22] MEDS ORDERED: ONDANSETRON INJ 2 MG/ML 2 ML VIAL IV PRN (09:35)
--- NOTE | 2018-06-22 10:00 | History & Physical Report ---
Date of Service June 22, 2018 Assessment & Plan (1) Acute kidney injury: BUN and Cr are 107 and 7.7 baseline Cr is 1.0 based on outpatient labs patient making very little urine, likely oliguric will give him fluid challenge, very dry on exam receiving his 2nd liter in the ED, will give two more liters at 999mL/hr will then start D51/2NSS with 75mEq of sodium bicarb at 125mL/hr repeat BMP at 1400 to make sure his Cr is improving follow UO closely if Cr does not improve then consult nephrology K is normal will monitor on tele since he could be at risk for developing electrolyte abnormalities (2) Acute dehydration: very dry, diarrhea and vomiting for 4 days very little oral intake decreased skin turgor and dry mucous membranes causing prerenal azotemia will aggressively hydrate (3) Nausea, vomiting and diarrhea: patient reports eating some old lunchmeat prior to symptoms starting primarily has had issues with diarrhea, large volume, watery, no blood seen has associated abdominal cramping vomiting is more intermittent, but has no appetite will check C diff and stool culture no recent Abx use, no travel, no sick contacts (4) GERD (gastroesophageal reflux disease): (5) HTN (hypertension): hold Lisinopril/HCTZ certainly these could have been contributing to the RIVERA, making it worse (6) Leukocytosis: quite high at 29k some of the elevation could be due to hemoconcentration as his Hb is 17 will repeat CBC this afternoon (7) Metabolic acidosis: due to diarrhea will give sodium bicarb in fluids after fluid boluses completed repeat BMP this afternoon (8) Hypotension: temporary, responded to fluid boluses due to dehydration no suspicion for sepsis History of Present Illness Chief Complaint: I feel terrible Primary Care Provider: Surinder Painting MD Patient is 63 yo male with medical history of hypertension and prior cholecystectomy who presented to the ED today c/o several days of diarrhea and intermittent vomiting. The patient says his symptoms started on Wednesday06/17/18, 5 days ago. He had some diarrhea that night. The next day he had diarrhea all day long, possibly ten episodes. Watery, large volume, brown. No blood seen. The next day he had further episodes of diarrhea but not as frequent. Also on Wednesday he had some vomiting, just one or two episodes. Had a lot of dry heaves. He experienced a lot of abdominal cramping but never had severe abdominal pain. He had no appetite for the past 5 days, very little intake, even fluids. He has been experiencing chills at night, no documented fevers. He has grown more and more fatigued, no energy, experiencing muscle aches and joint pains. He continued to have diarrhea and some intermittent vomiting the past two days but not as intense as the first two days of symptoms. Since he was not getting better he came to the ED. He admits to eating some older lunchmeat the day the symptoms started. Cannot recall any undercooked chicken or beef. He has not traveled. No recent antibiotic use. No sick contacts. He has been compliant with his medications. Allergies Allergy/AdvReac Type Severity Reaction Status Date / Time Penicillins Allergy Severe SWELLING Verified 06/22/18 08:00 AND HIVES Home Medications Home Medications Medication Instructions Recorded Confirmed Type diphenhydramine HCl [Benadryl] 25 mg PO DIRECTED PRN 12/09/17 06/22/18 History metoprolol tartrate 25 mg PO BID 12/09/17 06/22/18 History pantoprazole [Protonix] 40 mg PO DAILY 12/09/17 06/22/18 History red yeast rice 600 mg PO DAILY 12/09/17 06/22/18 History sodium chloride [Saline Nasal] 1 spray INTRANASAL DIRECTED PRN 12/09/17 06/22/18 History lisinopril-hydrochlorothiazide 1 tab PO DAILY 06/22/18 06/22/18 History Past Med/Surg History Medical History Renal mass Hyperlipidemia GERD (gastroesophageal reflux disease) Uncontrolled hypertension (Acute) Gallstone pancreatitis (Acute) Acid reflux Arthritis Surgical History Status post cholecystectomy Social History Preferred Language: [place] Communication Ability: Effective Visual Impairment: Limited Handtools Repairer Required: No Beliefs That Will Affect Care: Restoration Restoration Beliefs: Cheondoism marital status: Current Living Situation: Spouse current occupational status: employed Other Information That Helps Us Care for You: No Feels Safe at Home: Yes Safety Concerns: Feels Safe At This Time Smoking Status: Never smoker Do You Dip or Chew Tobacco: No Second Hand Exposure: No Tobacco Cessation Education Requested by Patient: No Hx Alcohol Use: No Hx Substance Use: No Review of Systems Review of Systems: All systems reviewed & are unremarkable except as noted in HPI & below Constitutional: + chills, + sweats, + body aches, + fatigue, + malaise and + weakness; no fever Respiratory: no cough and no dyspnea Cardiovascular: no chest pain, no dyspnea and no dyspnea at rest Gastrointestinal: + nausea, + vomiting, + cramping, + diarrhea/loose stools and + constant urge to pass stools; no abdominal pain, no belching, no heartburn, no coffee ground emesis, no constipation and no melena Genitourinary: + decreased urination (urine dark) Musculoskeletal: + joint pain and + myalgia Integumentary: no rash Physical Exam Constitutional: well developed, well nourished and + ill appearing; + not appropriately hydrated (dehydrated) Eyes: PERRL, conjunctivae normal, anicteric sclerae ENMT: Nose: no nasal discharge and no sinus tenderness Mouth: + oral mucosal abnormality (dry mucous membranes) Throat: uvula midline Neck: trachea midline, no thyromegaly Respiratory: normal respiratory effort, lungs clear to auscultation Cardiovascular: RRR, no murmur, no edema Gastrointestinal (Abdomen): normal bowel sounds, soft, nontender, no hepatosplenomegaly Musculoskeletal: no cyanosis or clubbing, extremities motor strength 5/5 Skin: no rashes, warm and dry Neurologic: patellar DTR's 2+ bilat, sensation intact Psychiatric: A+Ox3, euthymic affect Lymphatic: no cervical or axillary lymphadenopathy Results & Data Vital Signs (Past 12 Hours) Vital Signs Temp Pulse Pulse Resp BP BP Pulse Ox 06/22/18 08:30 83 16 88/35 L 06/22/18 07:32 36.3 C L 90 20 87/55 L 97 Laboratory Results Laboratory Results - last 24 hr 06/22/18 06/22/18 06/22/18 07:45 07:45 08:10 WBC 29.34 H RBC 6.18 H Hgb 17.6 Hct 49.4 MCV 79.9 L MCH 28.5 MCHC 35.6 RDW Std Deviation 40.8 RDW Coeff of Yuri 14.2 Plt Count 347 MPV 11.7 H Immature Gran % (Auto) 0.4 Neut % (Auto) 87.1 Lymph % (Auto) 4.9 [place] % (Auto) 6.6 Eos % (Auto) 0.9 Baso % (Auto) 0.1 Immature Gran # (Auto) 0.12 H Neut # (Auto) 25.57 H Lymph # (Auto) 1.43 [place] # (Auto) 1.94 H Eos # (Auto) 0.26 Baso # (Auto) 0.02 Sodium 133 L Potassium 4.2 Chloride 99 Carbon Dioxide 20 L Anion Gap 13.0 H BUN 107 H Creatinine 7.78 H* Est Cr Clr Drug Dosing Not Reportable Est GFR ( Amer) 7.6 Est GFR (Non-Af Amer) 6.6 BUN/Creatinine Ratio 13.9 Glucose 139 H Calcium 8.8 Magnesium 2.3 Total Bilirubin 1.0 AST 13 L ALT 22 Alkaline Phosphatase 134 H POC Troponin I < 0.03 NT-Pro-B Natriuret Pep 193 Total Protein 8.9 H Albumin 4.1 Globulin 4.8 H Albumin/Globulin Ratio 0.9 Lipase 590 H Diagnostic Findings XR chest 1V portable HISTORY: Shortness of breath. COMPARISON: Chest 12/16/2017. FINDINGS: There are low lung volumes. No pneumothorax. No pleural effusions. The heart remains mildly enlarged. There is mild central pulmonary vascular congestion without overt edema. A few left basilar linear densities favor subsegmental atelectasis. No focal lung consolidations to suggest pneumonia. IMPRESSION: Mild cardiomegaly with mild congestive change. Code Status & VTE Plan Code Status full code VTE Prophylaxis Plan VTE Prophylaxis will be ordered: Yes (1) GERD (gastroesophageal reflux disease) Esophagitis presence: esophagitis presence not specified Qualified Code(s): K21.9 - Gastro-esophageal reflux disease without esophagitis
[2018-06-22 11:50] LABS: Appearance Urine Cloudy (Clear); Bilirubin Urine Negative (Negative); Blood Urine Negative (Negative); Color Urine Yellow; Epithelial Cell Urine Auto 20-30 /lpf (0-5); Glucose Urine UA Negative (Negative); Ketones Urine Trace (Negative); Leukocyte Esterase Urine Trace (Negative); Nitrite Urine Negative (Negative); Protein Urine Trace (Negative); Specific Gravity Urine 1.023 (1.000-1.030); Urobilinogen Urine Negative (Negative)
[2018-06-22 12:20] LABS: Mucus Urine Present (None Prsent)
[2018-06-22 12:21] LABS: Calcium Oxalate Crystals Urine Present (None Prsent); RBC Urine Automated 0-4 /hpf (0-4)
[2018-06-22 12:22] LABS: Bacteria Urine Automated 1+ (Negative)
[2018-06-22] MEDS: SODIUM CHLORIDE 0.9% 1000ML 1,000 ML IV SCH ×2 (12:59→13:00)
[2018-06-22] MEDS: SODIUM BICARBONATE 8.4% 75 MEQ in D5W AND 1/2NSS 1,000 ML IV SCH ×2 (14:05→22:36)
[2018-06-22 14:17] LABS: INR 1.1 (0.9-1.1); Partial Thromboplastin Ratio 1.1; Partial Thromboplastin Time 29.4 Seconds (21.0-31.0); Prothrombin Time 11.5 Seconds (9.0-12.0)
[2018-06-22 14:37] LABS: Basophils # (auto) 0.01 K/uL (0-0.2); Basophils % (auto) 0.1 %; Eosinophils # (auto) 0.25 K/uL (0-0.5); Eosinophils % (auto) 1.4 %; Hematocrit (blood only) 38.8 % (42-52); Hemoglobin 12.9 g/dL (14.0-18.0); Immature Granulocytes # (auto) 0.04 K/uL (0.00-0.02); Immature Granulocytes % (auto) 0.2 %; Lymphocytes # (auto) 1.46 K/uL (1.2-3.4); Lymphocytes % (auto) 8.3 %; Mean Corpuscular Hgb Conc 33.2 g/dL (32-36); Mean Corpuscular Volume 80.3 fL (80-100); Mean Platelet Volume 10.7 fL (7.4-10.4); Monocytes # (auto) 0.91 K/uL (0.11-0.59); Monocytes % (auto) 5.2 %; Neutrophils # (auto) 14.83 K/uL (1.4-6.5); Neutrophils % (auto) 84.8 %; Platelet Count 209 K/uL (130-400); RDW Coefficient of Variation 13.9 % (11.5-14.5); RDW Standard Deviation 41.1 fL (36.4-46.3); Red Blood Count 4.83 M/uL (4.7-6.1)
[2018-06-22 14:47] LABS: Albumin Level 2.8 gm/dl (3.4-5.0); BUN Creatinine Ratio 16.7 (10-20); Bilirubin Direct 0.1 mg/dl (0-0.2); Bilirubin,Total 0.5 mg/dl (0.2-1); Calcium 7.7 mg/dl (8.5-10.1); Creatinine Clr Calc Pharmacy 14.8 ml/min; Est GFR (African American) 10.6; Est GFR (Non-African American) 9.1; Potassium 3.9 mmol/L (3.5-5.1); Total Protein 6.1 gm/dl (6.4-8.2)
[2018-06-22] MEDS: HEPARIN SOD 5,000 UNIT/0.5 ML VIAL SQ SCH ×2 (17:00→21:22)
[2018-06-22 21:32] LABS: BUN Creatinine Ratio 20.1 (10-20); Calcium 7.7 mg/dl (8.5-10.1); Creatinine Clr Calc Pharmacy 17.4 ml/min; Est GFR (African American) 12.8; Est GFR (Non-African American) 11.1; Potassium 3.9 mmol/L (3.5-5.1)
[2018-06-23 05:57] LABS: Basophils # (auto) 0.01 K/uL (0-0.2); Basophils % (auto) 0.1 %; Eosinophils # (auto) 0.14 K/uL (0-0.5); Eosinophils % (auto) 1.4 %; Hematocrit (blood only) 38.8 % (42-52); Hemoglobin 13.1 g/dL (14.0-18.0); Immature Granulocytes # (auto) 0.02 K/uL (0.00-0.02); Immature Granulocytes % (auto) 0.2 %; Lymphocytes % (auto) 15.6 %; Mean Corpuscular Hgb Conc 33.8 g/dL (32-36); Mean Corpuscular Volume 79.3 fL (80-100); Mean Platelet Volume 11.4 fL (7.4-10.4); Monocytes # (auto) 1.08 K/uL (0.11-0.59); Monocytes % (auto) 10.5 %; Neutrophils % (auto) 72.2 %; Platelet Count 206 K/uL (130-400); RDW Coefficient of Variation 13.9 % (11.5-14.5); RDW Standard Deviation 39.4 fL (36.4-46.3); Red Blood Count 4.89 M/uL (4.7-6.1); White Blood Count 10.25 K/uL (4.8-10.8)
[2018-06-23] MEDS: HEPARIN SOD 5,000 UNIT/0.5 ML VIAL SQ SCH ×3 (06:04→21:28)
[2018-06-23 06:26] LABS: Calcium 7.8 mg/dl (8.5-10.1); Creatinine Clr Calc Pharmacy 22.2 ml/min; Est GFR (African American) 17.3; Est GFR (Non-African American) 14.9
[2018-06-23] MEDS: SODIUM BICARBONATE 8.4% 75 MEQ in D5W AND 1/2NSS 1,000 ML IV SCH (07:30)
[2018-06-23] MEDS ORDERED: LOPERAMIDE HCL 2 MG CAP PO PRN (11:17)
--- NOTE | 2018-06-23 11:28 | Hospitalist Progress Note ---
Date of Service June 23, 2018 Assessment & Plan (1) Acute kidney injury: BUN and Cr are 107 and 7.7 baseline Cr is 1.0 based on outpatient labs at time of admission this was oliguric responded very well to IV fluids, Cr down to 3.9, making adequate urine electrolytes stable can transfer off of tele with drop in Cr and increased urine output this would suggest prerenal etiology for RIVERA (2) Acute dehydration: very dry, diarrhea and vomiting for 4 days very little oral intake adequately hydrated at this time will decrease fluids to 80cc/hr (3) Nausea, vomiting and diarrhea: patient reports eating some old lunchmeat prior to symptoms starting primarily has had issues with diarrhea, large volume, watery, no blood seen has associated abdominal cramping vomiting is more intermittent, but has no appetite will check C diff and stool culture - both negative no recent Abx use, no travel, no sick contacts will start Imodium PRN for the diarrhea, had more last night (4) GERD (gastroesophageal reflux disease): (5) HTN (hypertension): continue to hold Lisinopril/HCTZ certainly these could have been contributing to the RIVERA, making it worse (6) Leukocytosis: quite high at 29k some of the elevation could be due to hemoconcentration as his Hb is 17 repeat CBC this AM shows WBC is normal, thus it was all concentration, no infection (7) Metabolic acidosis: due to diarrhea will give sodium bicarb in fluids after fluid boluses completed acidosis resolved, HCO3 normal today will change fluids to NSS at 80cc/hr (8) Hypotension: temporary, responded to fluid boluses due to dehydration no suspicion for sepsis Subjective patient feels a lot better today after aggressive hydration he is making more than adequate urine he did have further diarrhea over night, 5x, mild abd cramping C diff negative and stool culture still pending but no WBC seen on smear Cr improved to 3.96 WBC now normal will transfer to medical floor Review of Systems Review of Systems: All systems reviewed & are unremarkable except as noted in HPI & below Constitutional: no fever, no chills, no sweats and no body aches Respiratory: no cough and no dyspnea Cardiovascular: no chest pain Gastrointestinal: + cramping and + diarrhea/loose stools; no abdominal pain, no nausea, no vomiting and no constipation Genitourinary: no decreased urination (making more urine) Physical Exam Constitutional: well developed, well nourished and + ill appearing; + not appropriately hydrated (dehydrated) Eyes: PERRL, conjunctivae normal, anicteric sclerae ENMT: Nose: no nasal discharge and no sinus tenderness Throat: uvula midline Neck: trachea midline, no thyromegaly Respiratory: normal respiratory effort, lungs clear to auscultation Cardiovascular: RRR, no murmur, no edema Gastrointestinal (Abdomen): normal bowel sounds, soft, nontender, no hepatosplenomegaly Musculoskeletal: no cyanosis or clubbing, extremities motor strength 5/5 Skin: no rashes, warm and dry Neurologic: patellar DTR's 2+ bilat, sensation intact Psychiatric: A+Ox3, euthymic affect Lymphatic: no cervical or axillary lymphadenopathy Results & Data Vital Signs (Past 12 Hours) Vital Signs Temp Pulse Resp BP Pulse Ox 06/23/18 11:21 36.4 C L 67 18 110/71 100 06/23/18 07:22 36.3 C L 66 18 125/60 97 06/23/18 03:34 36.4 C L 74 18 119/69 96 06/22/18 23:38 36.6 C 75 17 111/61 96 Laboratory Results Laboratory Results - last 24 hr 06/22/18 06/22/18 06/22/18 10:45 13:57 13:57 WBC 17.50 H D RBC 4.83 Hgb 12.9 L D Hct 38.8 L MCV 80.3 MCH 26.7 MCHC 33.2 RDW Std Deviation 41.1 RDW Coeff of Yuri 13.9 Plt Count 209 MPV 10.7 H Immature Gran % (Auto) 0.2 Neut % (Auto) 84.8 Lymph % (Auto) 8.3 [place] % (Auto) 5.2 Eos % (Auto) 1.4 Baso % (Auto) 0.1 Immature Gran # (Auto) 0.04 H Neut # (Auto) 14.83 H Lymph # (Auto) 1.46 [place] # (Auto) 0.91 H Eos # (Auto) 0.25 Baso # (Auto) 0.01 PT INR APTT PTT Ratio Sodium 137 Potassium 3.9 Chloride 108 H Carbon Dioxide 16 L Anion Gap 13.0 H BUN 99 H Creatinine 5.94 H* D Est Cr Clr Drug Dosing 14.8 Est GFR ( Amer) 10.6 Est GFR (Non-Af Amer) 9.1 BUN/Creatinine Ratio 16.7 Glucose 138 H Calcium 7.7 L Magnesium 2.0 Total Bilirubin 0.5 D Direct Bilirubin 0.1 AST 9 L ALT 15 Alkaline Phosphatase 87 Total Protein 6.1 L D Albumin 2.8 L Urine Color Yellow Urine Appearance Cloudy H Urine pH 5.0 Ur Specific [place] 1.023 Urine Protein Trace H Urine Glucose (UA) Negative Urine Ketones Trace H Urine Blood Negative Urine Nitrite Negative Urine Bilirubin Negative Urine Urobilinogen Negative Ur Leukocyte Esterase Trace H Urine WBC (Auto) 5-10 H Urine RBC (Auto) 0-4 U Hyaline Cast (Auto) 5-10 H U Epithel Cells (Auto) 20-30 H Urine Bacteria (Auto) 1+ H Calcium Oxalate Crystal Present H Urine Mucus Present H Urine Yeast Not Reportable Stool Occult Bld Scrn Stl C. diff Tox B Gene 06/22/18 06/22/18 06/22/18 13:57 20:51 Unknown WBC RBC Hgb Hct MCV MCH MCHC RDW Std Deviation RDW Coeff of Yuri Plt Count MPV Immature Gran % (Auto) Neut % (Auto) Lymph % (Auto) [place] % (Auto) Eos % (Auto) Baso % (Auto) Immature Gran # (Auto) Neut # (Auto) Lymph # (Auto) [place] # (Auto) Eos # (Auto) Baso # (Auto) PT 11.5 INR 1.1 APTT 29.4 PTT Ratio 1.1 Sodium 137 Potassium 3.9 Chloride 108 H Carbon Dioxide 19 L Anion Gap 10.0 BUN 104 H Creatinine 5.06 H* D Est Cr Clr Drug Dosing 17.4 Est GFR ( Amer) 12.8 Est GFR (Non-Af Amer) 11.1 BUN/Creatinine Ratio 20.1 H Glucose 102 H Calcium 7.7 L Magnesium Total Bilirubin Direct Bilirubin AST ALT Alkaline Phosphatase Total Protein Albumin Urine Color Urine Appearance Urine pH Ur Specific Calvin Urine Protein Urine Glucose (UA) Urine Ketones Urine Blood Urine Nitrite Urine Bilirubin Urine Urobilinogen Ur Leukocyte Esterase Urine WBC (Auto) Urine RBC (Auto) U Hyaline Cast (Auto) U Epithel Cells (Auto) Urine Bacteria (Auto) Calcium Oxalate Crystal Urine Mucus Urine Yeast Stool Occult Bld Scrn Stl C. diff Tox B Gene Negative Cdiff Gene 06/22/18 06/23/1806/23/19 Unknown 05:32 05:32 WBC 10.25 RBC 4.89 Hgb 13.1 L Hct 38.8 L MCV 79.3 L MCH 26.8 MCHC 33.8 RDW Std Deviation 39.4 RDW Coeff of Yuri 13.9 Plt Count 206 MPV 11.4 H Immature Gran % (Auto) 0.2 Neut % (Auto) 72.2 Lymph % (Auto) 15.6 [place] % (Auto) 10.5 Eos % (Auto) 1.4 Baso % (Auto) 0.1 Immature Gran # (Auto) 0.02 Neut # (Auto) 7.40 H Lymph # (Auto) 1.60 [place] # (Auto) 1.08 H Eos # (Auto) 0.14 Baso # (Auto) 0.01 PT INR APTT PTT Ratio Sodium 139 Potassium Chloride 109 H Carbon Dioxide 22 Anion Gap 8.0 BUN 95 H Creatinine 3.96 H D Est Cr Clr Drug Dosing 22.2 Est GFR ( Amer) 17.3 Est GFR (Non-Af Amer) 14.9 BUN/Creatinine Ratio 24.0 H Glucose 105 H Calcium 7.8 L Magnesium Total Bilirubin Direct Bilirubin AST ALT Alkaline Phosphatase Total Protein Albumin Urine Color Urine Appearance Urine pH Ur Specific [place] Urine Protein Urine Glucose (UA) Urine Ketones Urine Blood Urine Nitrite Urine Bilirubin Urine Urobilinogen Ur Leukocyte Esterase Urine WBC (Auto) Urine RBC (Auto) U Hyaline Cast (Auto) U Epithel Cells (Auto) Urine Bacteria (Auto) Calcium Oxalate Crystal Urine Mucus Urine Yeast Stool Occult Bld Scrn Negative Stl C. diff Tox B Gene 06/23/18 06:51 WBC RBC Hgb Hct MCV MCH MCHC RDW Std Deviation RDW Coeff of Yuri Plt Count MPV Immature Gran % (Auto) Neut % (Auto) Lymph % (Auto) [place] % (Auto) Eos % (Auto) Baso % (Auto) Immature Gran # (Auto) Neut # (Auto) Lymph # (Auto) [place] # (Auto) Eos # (Auto) Baso # (Auto) PT INR APTT PTT Ratio Sodium Potassium 4.0 Chloride Carbon Dioxide Anion Gap BUN Creatinine Est Cr Clr Drug Dosing Est GFR ( Amer) Est GFR (Non-Af Amer) BUN/Creatinine Ratio Glucose Calcium Magnesium Total Bilirubin Direct Bilirubin AST ALT Alkaline Phosphatase Total Protein Albumin Urine Color Urine Appearance Urine pH Ur Specific [place] Urine Protein Urine Glucose (UA) Urine Ketones Urine Blood Urine Nitrite Urine Bilirubin Urine Urobilinogen Ur Leukocyte Esterase Urine WBC (Auto) Urine RBC (Auto) U Hyaline Cast (Auto) U Epithel Cells (Auto) Urine Bacteria (Auto) Calcium Oxalate Crystal Urine Mucus Urine Yeast Stool Occult Bld Scrn Stl C. diff Tox B Gene Medications Administered Current Inpatient Medications Acetaminophen (Tylenol) 650 mg PO Q4H PRN PRN Reason: Pain or Fever Stop: 07/22/18 09:34 Heparin Sodium (Porcine) (Heparin Sodium (Porcine)) 5,000 units SQ Q8 [facility] Stop: 07/22/18 14:44 Last Admin: 06/23/18 09:43 Dose: Not Given Documented by: Sodium Chloride (Nss 1000ml) 1,000 mls @ 80 mls/hr IV .[id number] [facility] Stop: 07/23/18 11:29 Loperamide HCl (Imodium) 2 mg PO Q6 PRN PRN Reason: Diarrhea Stop: 07/23/18 11:16 Ondansetron HCl (Zofran) 4 mg IV Q6H PRN PRN Reason: Nausea Stop: 07/22/18 09:34 (1) GERD (gastroesophageal reflux disease) Esophagitis presence: esophagitis presence not specified Qualified Code(s): K21.9 - Gastro-esophageal reflux disease without esophagitis
[2018-06-23] MEDS: SODIUM CHLORIDE 0.9% 1000ML 1,000 ML IV SCH (11:38)
--- NOTE | 2018-06-23 13:22 | Medical Student Progress Note ---
Date of Service June 23, 2018 Assessment & Plan (1) Acute kidney injury: On admission the patient had a BUN and Cr of 107 and 7.7. Baseline creatinine is 1.0 per outpatient records. On admission patient was making very little urine as well, supporting the diagnosis of acute kidney injury. Patient has been aggressively rehydrated, with 4 L of NSS and most recently with D5 / 1/2 NSS with 75 mEq of sodium bicarbonate at 125 mL/hr. 1. Patient is making more urine and is without a catheter -- continue to monitor urine output. 2. Repeat BMP in the morning to make sure that BUN and Cr are continuing to improve. 3. Can continue with NSS at 80 mL/hr since metabolic acidosis has resolved. (2) Acute dehydration: See above about patient's labs and RIVERA at time of admission -- he had profound diarrhea for 4-5 days with very little PO intake before presentation. In addition to laboratory findings he had dry mucous membranes and decreased skin turgor, suggesting an acute dehydration. Labs and physical exam findings have started to improve with rehydration. Electrolytes are now stable. 1. Continue with NSS at 80 mL/hr. 2. Continue to encourage PO intake as the patient is able. 3. Can transfer off of telemetry floor due to low risk for cardiac abnormalities since electrolytes have been stabilized. (3) Nausea, vomiting and diarrhea: Patient reports eating some old lunch meat before symptom onset. Considered that nausea/vomiting/diarrhea could be due to c. difficile colitis, bacterial gastroenteritis, or viral gastroenteritis. Patient's c. diff toxin was negative, and stools showed no WBCs, making a bacterial cause unlikely. 1. Await results of stool cultures. 2. Continue with supportive care, most importantly hydration status, anti-nausea medications as needed. (4) GERD (gastroesophageal reflux disease): Esophagitis presence: esophagitis presence not specified Qualified Code(s): K21.9 - Gastro-esophageal reflux disease without esophagitis (5) HTN (hypertension): Patient routinely takes lisinopril and HCTZ for hypertension, and was continuing to take them despite diarrhea, poor PO intake. This could have been contributing to RIVERA. 1. Given limited PO intake, continue to hold these medications. (6) Leukocytosis: On admission the WBCs were quite high at 29K, but the hemoglobin was also elevated at 17. This suggests some degree of hemoconcentration, especially because both dramatically declined after rehydration. 1. Repeat CBC in the morning. (7) Metabolic acidosis: Likely due to diarrhea prolonged diarrhea and electrolyte depletion before admission. The patient has been given sodium bicarbonate and the metabolic acidosis has resolved. 1. Repeat BMP in the morning. (8) Hypotension: Patient's blood pressure was in the 80s/50s on admission, but his numbers increased after fluid boluses. Hypotension secondary to dehydration with no concern for a separate etiology such as sepsis. 1. Continue to use IV fluids as necessary. 2. Encourage PO intake as the patient is able. Subjective Mr. Bray states that today he is feeling better, although he did have 6-8 episodes of loose stools overnight. He notes that after dinner he felt some lower abdominal cramping/burning and then had diarrhea for several hours into the early childhood director. However, he has been able to tolerate breakfast and only had one episode of diarrhea after eating. He notes that he is making much more urine than he was previously. This was confirmed by nursing report. Physical Exam Vital Signs (Past 24 Hours): Last Vital Signs Temp 36.4 C L 06/23/18 11:21 Pulse 67 06/23/18 11:21 Resp 18 06/23/18 11:21 BP 110/71 06/23/18 11:21 Pulse Ox 100 06/23/18 11:21 Constitutional: Patient is a well-appearing male, sitting comfortably in bed. He looks his stated age. Respiratory: Lungs clear to auscultation bilaterally. No wheezes, rhonchi, or rales. Cardiovascular: Normal S1 and S2 heard. No murmurs, rubs, or gallops. Gastrointestinal (Abdomen): Normal bowel sounds in all four quadrants. No tenderness to palpation. Skin: Moist mucous membranes, skin is warm and with good capillary refill <2 seconds. Results & Data Laboratory Results WBC count is trending down from 29.3K --> 17.5K --> 10.2 Hemoglobin trending down from 17.6 --> 13.1 Creatinine trending down from 7.78 --> 5.1 --> 3.9 BUN trending down from 107 --> 104 --> 95 Calcium low at 7.8. All other labs are within normal limits. Diagnostic Findings Negative for C. diff toxin in stool. Stool smear negative for WBCs. Stool cultures pending. Medications Administered
[2018-06-24] MEDS: SODIUM CHLORIDE 0.9% 1000ML 1,000 ML IV SCH (00:25)
[2018-06-24] MEDS: HEPARIN SOD 5,000 UNIT/0.5 ML VIAL SQ SCH ×2 (05:01→14:32)
[2018-06-24 05:55] LABS: Basophils # (auto) 0.02 K/uL (0-0.2); Basophils % (auto) 0.2 %; Eosinophils # (auto) 0.21 K/uL (0-0.5); Eosinophils % (auto) 2.6 %; Hematocrit (blood only) 35.8 % (42-52); Hemoglobin 12.2 g/dL (14.0-18.0); Immature Granulocytes # (auto) 0.02 K/uL (0.00-0.02); Immature Granulocytes % (auto) 0.2 %; Lymphocytes # (auto) 1.79 K/uL (1.2-3.4); Lymphocytes % (auto) 21.8 %; Mean Corpuscular Hgb Conc 34.1 g/dL (32-36); Mean Corpuscular Volume 78.9 fL (80-100); Mean Platelet Volume 10.9 fL (7.4-10.4); Monocytes # (auto) 0.91 K/uL (0.11-0.59); Monocytes % (auto) 11.1 %; Neutrophils # (auto) 5.25 K/uL (1.4-6.5); Neutrophils % (auto) 64.1 %; Platelet Count 183 K/uL (130-400); RDW Coefficient of Variation 13.9 % (11.5-14.5); RDW Standard Deviation 39.5 fL (36.4-46.3); Red Blood Count 4.54 M/uL (4.7-6.1)
[2018-06-24 06:40] LABS: BUN Creatinine Ratio 36.7 (10-20); Est GFR (Non-African American) 39.7; Potassium 3.7 mmol/L (3.5-5.1)
--- NOTE | 2018-06-24 12:55 | Discharge Summary ---
Date of Service June 24, 2018 Admission HPI Per Admitting Provider Patient is 63 yo male with medical history of hypertension and prior cholecystectomy who presented to the ED today c/o several days of diarrhea and intermittent vomiting. The patient says his symptoms started on Wednesday06/17/18, 5 days ago. He had some diarrhea that night. The next day he had diarrhea all day long, possibly ten episodes. Watery, large volume, brown. No blood seen. The next day he had further episodes of diarrhea but not as frequent. Also on Wednesday he had some vomiting, just one or two episodes. Had a lot of dry heaves. He experienced a lot of abdominal cramping but never had severe abdominal pain. He had no appetite for the past 5 days, very little intake, even fluids. He has been experiencing chills at night, no documented fevers. He has grown more and more fatigued, no energy, experiencing muscle aches and joint pains. He continued to have diarrhea and some intermittent vomiting the past two days but not as intense as the first two days of symptoms. Since he was not getting b sharif he came to the ED. He admits to eating some older lunchmeat the day the symptoms started. Cannot recall any undercooked chicken or beef. He has not traveled. No recent antibiotic use. No sick contacts. He has been compliant with his medications. Admission Exam Per Admitting Provider Constitutional: well developed, well nourished and + ill appearing; + not appropriately hydrated (dehydrated) Eyes: PERRL, conjunctivae normal, anicteric sclerae ENMT: Nose: no nasal discharge and no sinus tenderness Mouth: + oral mucosal abnormality (dry mucous membranes) Throat: uvula midline Neck: trachea midline, no thyromegaly Respiratory: normal respiratory effort, lungs clear to auscultation Cardiovascular: RRR, no murmur, no edema Gastrointestinal (Abdomen): normal bowel sounds, soft, nontender, no hepatosplenomegaly Musculoskeletal: no cyanosis or clubbing, extremities motor strength 5/5 Skin: no rashes, warm and dry Neurologic: patellar DTR's 2+ bilat, sensation intact Psychiatric: A+Ox3, euthymic affect Lymphatic: no cervical or axillary lymphadenopathy Principal Diagnosis Acute kidney injury Discharge Exam Constitutional well developed, well nourished and + ill appearing; + not appropriately hydrated (dehydrated) Eyes PERRL, conjunctivae normal, anicteric sclerae ENMT Nose: no nasal discharge and no sinus tenderness Throat: uvula midline Neck trachea midline, no thyromegaly Respiratory normal respiratory effort, lungs clear to auscultation Cardiovascular RRR, no murmur, no edema Gastrointestinal (Abdomen) normal bowel sounds, soft, nontender, no hepatosplenomegaly Musculoskeletal no cyanosis or clubbing, extremities motor strength 5/5 Skin no rashes, warm and dry Neurologic patellar DTR's 2+ bilat, sensation intact Psychiatric A+Ox3, euthymic affect Lymphatic no cervical or axillary lymphadenopathy Discharge Data Allergies Allergy/AdvReac Type Severity Reaction Status Date / Time Penicillins Allergy Severe SWELLING Verified 06/22/18 08:00 AND HIVES Consultations 06/22/18 08:56 ED Decision to Admit Stat Hospital Course (1) Acute kidney injury: BUN and Cr were 107 and 7.7 on admission baseline Cr is 1.0 based on outpatient labs at time of admission this was oliguric but quickly started to make urine with IV fluids responded very well to IV fluids, Cr down to 1.7, making adequate urine electrolytes stable with drop in Cr and increased urine output this would suggest prerenal etiology for RIVERA patient knows to continue to stay well hydrated, will make sure he is taking in more than he is losing (2) Acute dehydration: very dry, diarrhea and vomiting for 4 days very little oral intake adequately hydrated at this time no further IV fluids needed (3) Nausea, vomiting and diarrhea: patient reports eating some old lunchmeat prior to symptoms starting primarily has had issues with diarrhea, large volume, watery, no blood seen has associated abdominal cramping vomiting is more intermittent, but has no appetite possible acute gastroenteritis from eating spoiled food will check C diff and stool culture - both negative no recent Abx use, no travel, no sick contacts less frequent and less volume stools on Imodium continue to take Imodium as needed, follow up with PCP in one week Giardia testing sent out, this is reference lab even if it is Giardia, most cases are self limiting, PCP can follow up on results (4) GERD (gastroesophageal reflux disease): (5) HTN (hypertension): continue to hold Lisinopril/HCTZ on discharge, blood pressure normal off of them certainly these could have been contributing to the RIVERA, making it worse continue on Lopressor 25mg BID (6) Leukocytosis: quite high at 29k some of the elevation could be due to hemoconcentration as his Hb is 17 repeat CBC showed WBC is normal, thus it was all concentration, no infection (7) Metabolic acidosis: due to diarrhea will give sodium bicarb in fluids after fluid boluses completed acidosis resolved, HCO3 normal 5/2 (8) Hypotension: temporary, responded to fluid boluses due to dehydration no suspicion for sepsis (9) Gastroenteritis: possibly due to spoiled food consumption Total Time Total Time Spent Total Time Spent (In Minutes): 40 minutes Total Time Includes: Examination of the Patient, Discharge Planning and Medication Reconciliation Discharge Plan Discharge Items Patient Disposition: Home - Self-Care Reason For Visit: ACUTE RENAL FAILURE, DIARRHEA Discharge Diagnosis: Acute renal failure, resolved Acute diarrhea Metabolic acidosis Condition: Good Discharge Goals: Decrease discomfort and Improve disease control Activity: Resume your previous activity Non-emergency contact: Primary Care Provider Call non-emergency contact if: you have any medication questions, your symptoms worsen and you have a fever Follow-up/Referrals: Surinder Painting MD [Primary Care Provider] - 07/01/18 11:30 am (follow up appointment with your primary care physician) Diet: Regular Addtl Provider Instructions: Medications: - IMODIUM: can buy over the counter, take every 6 hours as needed for diarrhea, only take if you have diarrhea Acute renal failure nearly resolved, Cr down to 1.7 from 7.78, improved quickly over 2 days caused by dehydration will continue to improve now that diarrhea is less frequent and less volume push oral fluids, drink more than you lose, make sure you are drinking fluids with electrolytes such as Gatorade or Vitamin water continue to hold Lisinopril/HCTZ as your blood pressures have been normal off this medication could be resumed by Dr. Painting as outpatient if your pressures are high on follow up Acute diarrhea, presumed to be infectious improving slowly with Imodium stool culture negative for common infections such as Camplyobacter, Shigella, E coli negative testing for C diff testing sent out for Giardia but this is pending treat with Imodium, take a capsule any time you have loose stools, up to 4 times a day currently you are having 1-2 loose stools which is improvement, not really considered diarrhea, just loose stools follow up closely with Dr. Painting next week as we discussed, diarrhea should be self limiting if it persists for more than 2 weeks then could consider GI referral as outpatient Prescriptions: New loperamide 2 mg Capsule 2 mg PO Q6 PRN (Reason: Diarrhea) 10 Days Qty: 30 RF: 0 Continued pantoprazole [Protonix] 40 mg Tablet,Delayed Release (Dr/Ec) 40 mg PO DAILY RF: 0 diphenhydramine HCl [Benadryl] 25 mg Capsule 25 mg PO DIRECTED PRN (Reason: Allergic Symptoms) RF: 0 sodium chloride [Saline Nasal] 0.65 % Aerosol,[place] 1 spray INTRANASAL DIRECTED PRN (Reason: Dry Nasal Passages) RF: 0 metoprolol tartrate 25 mg Tablet 25 mg PO BID RF: 0 red yeast rice 600 mg Capsule 600 mg PO DAILY RF: 0 Discontinued lisinopril-hydrochlorothiazide 10-12.5 mg tablet 1 tab PO DAILY RF: 0 Stand-Alone Forms: [facility], Work/School Release (Inpt) Discharge Orders: Discharge Order (Routine); Ordered 06/24/18 Ordered By: Rick Su Admission Data Admit Date/Time: 06/22/18 09:36 Attending Provider: Rick Su Admit Provider: Rick Su Primary Care Provider: Surinder Painting Other Providers: Augustus Reed Service: Medical Other Interventions: Discharge Summary Assessment (RN) Last Done: 06/24/18 10:50 DC Date/Time DO NOT enter until pt leaves facility: 06/24/18 18:57
== END 2018-06-24 18:57 | disposition home or self-care (01) | DRG 394 ==
LOC: ED 07:27 → 2S 09:36 → 4W 06-23 11:25

== ENCOUNTER 2018-10-27 22:13 | Inpatient (IN) ==
[2018-10-27 22:50] LABS: Basophils # (auto) 0.01 K/uL (0-0.2); Basophils % (auto) 0.1 %; Eosinophils # (auto) 0.15 K/uL (0-0.5); Eosinophils % (auto) 0.8 %; Hematocrit (blood only) 49.1 % (42-52); Hemoglobin 16.6 g/dL (14.0-18.0); Immature Granulocytes # (auto) 0.06 K/uL (0.00-0.02); Immature Granulocytes % (auto) 0.3 %; Lymphocytes # (auto) 1.34 K/uL (1.2-3.4); Lymphocytes % (auto) 6.7 %; Mean Corpuscular Hgb Conc 33.8 g/dL (32-36); Mean Corpuscular Volume 79.6 fL (80-100); Mean Platelet Volume 11.3 fL (7.4-10.4); Neutrophils % (auto) 87.1 %; Platelet Count 275 K/uL (130-400); RDW Coefficient of Variation 13.5 % (11.5-14.5); RDW Standard Deviation 38.4 fL (36.4-46.3); Red Blood Count 6.17 M/uL (4.7-6.1); White Blood Count 19.86 K/uL (4.8-10.8)
[2018-10-27] MEDS ORDERED: ONDANSETRON INJ 2 MG/ML 2 ML VIAL IV STA (22:56)
[2018-10-27] MEDS ORDERED: FAMOTIDINE 20MG/5ML IV PUSH IV STA (22:56)
[2018-10-27] MEDS ORDERED: SODIUM CHLORIDE 0.9% 1000ML 500 ML IV ONE (22:56)
[2018-10-27] MEDS ORDERED: SODIUM CHLORIDE 0.9% 1000ML 1,000 ML IV STA (22:56)
[2018-10-27 23:13] LABS: Alanine Aminotransferase 17 U/L (12-78); Albumin Globulin Ratio 0.8 (0.9-2); Albumin Level 3.8 gm/dl (3.4-5.0); Alkaline Phosphatase 119 U/L (45-117); Aspartate Aminotransferase 11 U/L (15-37); BUN Creatinine Ratio 20.9 (10-20); Blood Urea Nitrogen 29 mg/dl (7-18); Calcium 8.9 mg/dl (8.5-10.1); Carbon Dioxide 28 mmol/L (21-32); Chloride 103 mmol/L (98-107); Creatinine Clr Calc Pharmacy 61.4 ml/min; Est GFR (African American) 61.2; Est GFR (Non-African American) 52.8; Globulin 4.5 gm/dl (2.5-4.0); Glucose 134 mg/dl (70-99); Potassium 4.4 mmol/L (3.5-5.1); Sodium 137 mmol/L (136-145); Total Protein 8.3 gm/dl (6.4-8.2)
[2018-10-27 23:35] LABS: Troponin I < 0.015 ng/ml (0-0.045)
[2018-10-27 23:44] LABS: Appearance Urine Cloudy (Clear); Bacteria Urine Automated Negative (Negative); Bilirubin Urine Negative (Negative); Blood Urine Negative (Negative); Color Urine Dark Yellow; Glucose Urine UA Negative (Negative); Ketones Urine Trace (Negative); Leukocyte Esterase Urine Negative (Negative); Nitrite Urine Negative (Negative); Protein Urine 1+ (Negative); RBC Urine Automated 0-4 /hpf (0-4); Specific Gravity Urine 1.033 (1.000-1.030); Urobilinogen Urine Negative (Negative)
--- NOTE | 2018-10-27 23:49 | History & Physical Report ---
Date of Service October 27, 2018 Assessment & Plan (1) Upper gastrointestinal bleeding: (2) Leukocytosis: (3) Abdominal pain, epigastric: (4) HTN (hypertension): (5) Status post cholecystectomy: (6) Hyperlipidemia: (7) GERD (gastroesophageal reflux disease): (8) SBO (small bowel obstruction): 63-year-old male with history of hypertension, GERD, hyperlipidemia and cholecystectomy 2018 presents with coffee-ground emesis and abdominal pain tonight. Started having diarrhea 4 days ago for which he took imodium then today developed bloating, abdominal pain and emesis. Found to have SBO SBO Patient had abdominal pain and vomiting Afebrile, WBC 19.8 (likely hemoconcentrated CT abdomen: SBOdilated proximal SB loops and decompressed distal SB loops without a single focal transition point in right mid to lower abdomen. NG placed On Zofran IV as needed for nausea IV Tylenol and Toradol as needed for abdominal pain Started on Cipro and metronidazole empirically Surgery consulted Concern for possible GI bleed Patient had coffee-ground emesis x1 and dark diarrhea x1 day which later cleared Hemoglobin 16.6, likely somewhat hemoconcentrated Vomit Hemoccult was positive in the ED No active bleed at this time Received IV pantoprazole in the ED, IV Pepcid, 500 cc normal saline and normal saline at 125 cc/h On Pepcid IV twice daily GI consult deferred Monitor CBC GERD On IV Pepcid Holding home pantoprazole p.o. in the setting of being n.p.o. Hypertension/hyperlipidemia Hold home metoprolol p.o. On Lopressor IV as needed elevated blood pressure and heart rate greater than 70 On hydralazine IV as needed for elevated blood pressure and heart rate less than 70 Home red rice yeast held while n.p.o. Multiple renal and hepatic lesions Stable per CT today Incidental findings: Nephrolithiasis 3 mm nonobstructing right renal stone Incidental finding: Post interval cholecystectomy seroma CT abdomen: 3.2 x 1.9 x 2.1 cm low-density lesion in region of gallbladder fossa may represent postoperative seroma, no adjacent inflammatory changes LFT normal aside from alk phos of 119 Incidental finding: Small fat-containing right inguinal hernia FEN/GI: On normal saline 125 cc/h, n.p.o. for possible procedure and in the setting of SBO Code: Full DVT prophylaxis: SCDs only chemical contraindicated in the setting of possible GI bleed Disposition: MedSurg telemetry History of Present Illness Chief Complaint: abdominal pain, vomiting Primary Care Provider: Surinder Painting MD 63-year-old male with history of hypertension, GERD, hyperlipidemia and cholecystectomy 2018 presents with coffee-ground emesis and abdominal pain tonight. Patient reports diarrhea 4 days ago 2 days which resolved after he took Imodium yesterday. Reports diarrhea was initially dark but later became light in color, denies any bright red blood. He reports trying to stay hydrated with water and Gatorade and eating bland dietbagel applesauce. Today he noticed bloating and around 9 PM vomited. Vomit was dark in color no bright red blood noted. Associated with feeling hot at times and abdominal pain just above his bellybutton when he pushes on it. [place] any chills, headache, lightheadedness, cold symptoms, chest pain, shortness of breath, dysuria, hematuria. Educations: Takes metoprolol and pantoprazole Allergies: Penicillin Social history: Drinks socially (once a month), denies alcohol and occasional drug use Family history: Mother had diabetes and father had heart disease Allergies Allergy/AdvReac Type Severity Reaction Status Date / Time Penicillins Allergy Severe SWELLING Verified 10/27/18 22:58 AND HIVES Home Medications Home Medications Medication Instructions Recorded Confirmed Type red yeast rice 600 mg PO DAILY 12/09/17 10/27/18 History metoprolol tartrate 100 mg tablet 100 mg PO BID #180 tab 09/05/18 10/27/18 Rx pantoprazole 40 mg tablet,delayed 40 mg PO DAILY #30 tab 09/22/18 10/27/18 Rx release Past Med/Surg History Medical History Renal mass Hyperlipidemia GERD (gastroesophageal reflux disease) Uncontrolled hypertension (Acute) Gallstone pancreatitis (Acute) Acid reflux Arthritis Surgical History Status post cholecystectomy Family History Father Heart disease Mother Heart disease Diabetes Social History Preferred Language: Sami Communication Ability: Effective Visual Impairment: Limited 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 Beliefs That Will Affect Care: None marital status: Current Living Situation: Spouse current occupational status: employed Other Information That Helps Us Care for You: No Feels Safe at Home: Yes Safety Concerns: Feels Safe At This Time Smoking Status: Never smoker Second Hand Exposure: No ; Hx Alcohol Use: No Hx Substance Use: No Review of Systems Review of Systems: As per HPI Physical Exam Physical Exam: General: In NAD HEENT: dry oral mucosa Neuro: A&O x 4 Pulm: CTAB equal breath sounds bilaterally CV: RRR, no m/r/g, cap refill 3 secs Abdomen:+BS-hypoactive, TTP right above umbilicus at site of cholecystectomy incision, no rebound tenderness, distended, tympanic LE: no LE edema, no calf TTP Results & Data Vital Signs (Past 12 Hours) Vital Signs Temp Pulse Resp BP Pulse Ox 10/27/18 22:31 95 10/27/18 22:19 36.8 C 76 16 152/96 H 97 Laboratory Results Abnormal lab results 10/27/18 10/27/18 10/27/18 Range/Units 22:38 22:38 23:32 WBC 19.86 H (4.8-10.8) K/uL RBC 6.17 H (4.7-6.1) M/uL MCV 79.6 L (80-100) fL MPV 11.3 H (7.4-10.4) fL Immature Gran # (Auto) 0.06 H (0.00-0.02) K/uL Neut # (Auto) 17.30 H (1.4-6.5) K/uL [place] # (Auto) 1.00 H (0.11-0.59) K/uL BUN 29 H (7-18) mg/dl BUN/Creatinine Ratio 20.9 H (10-20) Glucose 134 H (70-99) mg/dl AST 11 L (15-37) U/L Alkaline Phosphatase 119 H (45-117) U/L Total Protein 8.3 H (6.4-8.2) gm/dl Globulin 4.5 H (2.5-4.0) gm/dl Albumin/Globulin Ratio 0.8 L (0.9-2) Urine Appearance Cloudy A (Clear) Ur Specific [place] 1.033 H (1.000-1.030) Urine Protein 1+ H (Negative) Urine Ketones Trace H (Negative) U Epithel Cells (Auto) 10-20 H (0-5) /lpf Urine Mucus Present A (None Prsent) Medications Administered Current Inpatient Medications Sodium Chloride (Nss 1000ml) 1,000 mls @ 125 mls/hr IV .Q8H STA Stop: 10/28/18 06:55 Last Admin: 10/27/18 23:45 Dose: 125 mls/hr Documented by: Code Status & VTE Plan Code Status Full VTE Prophylaxis Plan VTE Prophylaxis will be ordered: Yes Supervising Physician Co-Signing Physician Notes Attending addendum: I have physically seen this patient, have supervised the medical residents activities, and agree with the H&P unless as otherwise noted. Assessment and Plan: Small bowel obstruction- NG tube to low intermittent suction. N.p.o. Zofran 4 mg IV every 6 hours as needed nausea vomiting. Famotidine 20 mg IV every 12 hours. Acetaminophen 1 g IV every 8 hours PRN mild pain or temperature. Toradol 15 mg IV every 6 hours as needed. Cipro 40 mg IV every 12 hours and Flagyl 500 mg IV every 8 hours. Consult general surgery. Remainder of orders and notations as noted. PG Care Time/CCT Total # of Minutes Spent Total Time Spent with Patient: Total time spent is greater than 50% in coordination of care (as documented) at patient's floor/unit and/or counseling patient: Resident Activity Tracking Resident Involvement: Resident Care Provided Care Provided: Adult Hospital Medicine (1) Hyperlipidemia Hyperlipidemia type: other hyperlipidemia Qualified Code(s): E78.49 - Other hyperlipidemia; E78.4 - Other hyperlipidemia (2) Leukocytosis Leukocytosis type: unspecified Qualified Code(s): D72.829 - Elevated white blood cell count, unspecified (3) GERD (gastroesophageal reflux disease) Esophagitis presence: esophagitis presence not specified Qualified Code(s): K21.9 - Gastro-esophageal reflux disease without esophagitis
[2018-10-28] MEDS ORDERED: PANTOprazole 40 MG in SYRINGE 0 ML IV STA (00:10)
[2018-10-28 00:28] LABS: INR 1.1 (0.9-1.1); Partial Thromboplastin Ratio 0.9; Partial Thromboplastin Time 25.4 Seconds (21.0-31.0); Prothrombin Time 11.3 Seconds (9.0-12.0)
[2018-10-28 00:29] LABS: Mucus Urine Present (None Prsent)
[2018-10-28] MEDS ORDERED: METOPROLOL TARTRATE 1 MG/ML VIAL IV PRN (01:58)
--- NOTE | 2018-10-28 02:18 | Emergency Department Note ---
Entered by Sophie Arroyo acting as a scribe for Blu Altamirano MD ED Provider Note CHIEF COMPLAINT: Flue like symptoms HISTORY OF PRESENT ILLNESS: The patient is a 63 year old male who presents to the Emergency Room with complaints of flu like symptoms that started 2-3 days ago. His symptoms first started with dark, watery diarrhea a few days ago. He noted taking Immodium AD, which seemed to help his diarrhea. Today, he experienced so much bloating that it was difficult for him to breath and was creating pain in his sides. He then started vomiting, which began around 2100 tonight. He currently rates his pain at a 1 or 2, but at a 9 or 10 at its worst. He also feels lightheaded, and has some chest pain and burning in his throat, which he believes may be caused by the stomach bloating/pain. His last normal bowel movement was several days ago. The patient reports burping to get stomach relief, but other than that nothing seems to help his symptoms. He has a surgical history of cholecystectomy and GERD. Pt denies LOC, headache, fevers, chills, diaphoresis, visual changes, neck pain,, back pain, melena, hematochezia, urinary symptoms, numbness, weakness, lymphadenopathy, rash, or other complaints. REVIEW OF SYSTEMS: See HPI for pertinent positives and negatives. A total of ten systems were reviewed and were otherwise negative. PMHx/PSHx: Cholecystectomy GERD Arthritis SOCIAL HISTORY: Patient lives at home. PHYSICAL EXAM: GENERAL: Awake, alert, well-appearing, in no distress HENT: Normocephalic, atraumatic. Oropharynx unremarkable. EYES: PERRL. Normal conjunctiva. Sclera non-icteric. NECK: Inspection normal. Non-tender. Supple. No nuchal rigidity. FROM. No masses. RESPIRATORY: Clear to auscultation. No wheezes. No rales. Normal respiratory effort. CARDIAC: Normal rate. Normal rhythm. No murmurs. No rubs. Extremities warm and well perfused. Pulses equal. No JVD. GI: Epigastric tenderness. Mildly distended. No rebound or guarding. No masses. RECTAL: Dark stool. Hemacult positive MUSCULOSKELETAL: Atraumatic. Chest examination reveals no tenderness. The back is symmetrical on inspection without obvious abnormality. There is no CVA tenderness to palpation. No joint edema. LOWER EXTREMITIES: Calves are equal size bilaterally and non-tender. No edema. No discoloration. NEURO: Normal sensorium. No sensory or motor deficits noted. SKIN: No rash or jaundice noted. EMERGENCY DEPARTMENT COURSE: 2255: Past medical records reviewed. The patient was evaluated in room B11B, and a complete history and physical examination were performed. 0033: I rechecked on the patient and updated him on imaging results. I also spoke to Dr. King regarding the patient, and he agreed to further care for and evaluate him. The patient verbally expressed understanding and agreement of the treatment plan. The patient will be evaluated for further treatment. 0135: I spoke to Dr. Elliott, general surgery, and informed him of the patients bowel obstruction and medical admission. He will evaluate the patient in the morning. MEDICAL DECISION MAKING: Prior records/ancillary studies reviewed. Triage Nursing notes reviewed and agree them. Additional history obtained from patient's .. The patient's history was concerning for abdominal pain. Differential diagnosis: Etiologies such as appendicitis, diverticulitis, PUD, biliary pathology, UTI, pancreatitis, obstruction, mesenteric ischemia, aortic pathology, infections, inflammatory bowel disease, renal colic, as well as others were entertained. Physical examination findings: As above. ER treatment provided: Patient declined analgesia IV normal saline hydration IV Zofran IV Pepcid On reassessment the patient felt better. IV Protonix bolus NG tube Diagnostics interpreted by me: ECG revealed no acute ischemic change. The labs revealed a moderate leukocytosis on CBC. Chemistry panel revealed an elevated BUN. Urinalysis unremarkable. Imaging studies: CT scan of the abdomen pelvis was performed and is concerning for obstruction. Consultation: A consultation was placed with the hospitalist and general surgeon on-call. The case was discussed and diagnostics were reviewed. The patient was evaluated in the ER for further treatment by internal medicine. Surgery will consult.. IMPRESSION: Upper GI Bleed Leukocytosis Epigastric abdominal pain Bowel Obstruction PLAN: Admit The scribe's documentation has been prepared under my direction and personally reviewed by me in its entirety. I confirm that the note above accurately reflects all work, treatment, procedures, and medical decision making performed by me. Impression & Plan Upper gastrointestinal bleeding, Leukocytosis, Abdominal pain, epigastric, Bowel obstruction Past Med/Surg History Medical History Renal mass Hyperlipidemia GERD (gastroesophageal reflux disease) Uncontrolled hypertension (Acute) Gallstone pancreatitis (Acute) Acid reflux Arthritis Surgical History Status post cholecystectomy Family History Father Heart disease Mother Heart disease Diabetes Social History Preferred Language: Italian Communication Ability: Effective Visual Impairment: Limited Lurer Required: No Beliefs That Will Affect Care: Judaism Judaism Beliefs: Baptist marital status: Current Living Situation: Spouse current occupational status: employed Feels Safe at Home: Yes Smoking Status: Never smoker Second Hand Exposure: No ; Hx Alcohol Use: No Hx Substance Use: No Results & Data Vital Signs Vital Signs - 24 hr 10/27/18 22:19 10/27/18 22:31 10/27/18 23:58 Temperature 36.8 C Temperature Source Oral Sepsis Recent Fever Within 48 Hours No Sepsis New/Unexplained Change in Mental Status No Sepsis Action Taken by Nursing No Action Required Pulse Rate 76 Pulse Rate [Finger] 67 Respiratory Rate 16 18 Blood Pressure 152/96 H Blood Pressure [Left Arm] 180/97 H Blood Pressure Mean 114 Blood Pressure Mean [Left Arm] 124 Blood Pressure Position Sitting Pulse Oximetry 97 95 93 Oxygen Delivery Method Room Air Room Air Room Air 10/28/18 01:44 10/28/18 02:00 Temperature Temperature Source Sepsis Recent Fever Within 48 Hours Sepsis New/Unexplained Change in Mental Status Sepsis Action Taken by Nursing Pulse Rate Pulse Rate [Finger] 72 70 Respiratory Rate 21 18 Blood Pressure Blood Pressure [Left Arm] 213/110 H 192/114 H Blood Pressure Mean Blood Pressure Mean [Left Arm] 144 140 Blood Pressure Position Pulse Oximetry 93 93 Oxygen Delivery Method Room Air Room Air Home Medications Current Medication List: was personally reviewed by me Laboratory Data Attestation: I reviewed the patient's lab results. Result diagrams: 10/27/18 22:38 10/27/18 22:38 Lab Results 10/27/18 10/27/18 10/27/18 Range/Units 22:38 22:38 22:38 WBC 19.86 H (4.8-10.8) K/uL RBC 6.17 H (4.7-6.1) M/uL Hgb 16.6 (14.0-18.0) g/dL Hct 49.1 (42-52) % MCV 79.6 L (80-100) fL MCH 26.9 (25-34) pg MCHC 33.8 (32-36) g/dL RDW Std Deviation 38.4 (36.4-46.3) fL RDW Coeff of Yuri 13.5 (11.5-14.5) % Plt Count 275 (130-400) K/uL MPV 11.3 H (7.4-10.4) fL Immature Gran % (Auto) 0.3 % Neut % (Auto) 87.1 % Lymph % (Auto) 6.7 % [place] % (Auto) 5.0 % Eos % (Auto) 0.8 % Baso % (Auto) 0.1 % Immature Gran # (Auto) 0.06 H (0.00-0.02) K/uL Neut # (Auto) 17.30 H (1.4-6.5) K/uL Lymph # (Auto) 1.34 (1.2-3.4) K/uL [place] # (Auto) 1.00 H (0.11-0.59) K/uL Eos # (Auto) 0.15 (0-0.5) K/uL Baso # (Auto) 0.01 (0-0.2) K/uL PT 11.3 (9.0-12.0) Seconds INR 1.1 (0.9-1.1) APTT 25.4 (21.0-31.0) Seconds PTT Ratio 0.9 Sodium 137 (136-145) mmol/L Potassium 4.4 (3.5-5.1) mmol/L Chloride 103 (98-107) mmol/L Carbon Dioxide 28 (21-32) mmol/L Anion Gap 6.0 (3-11) BUN 29 H (7-18) mg/dl Creatinine 1.39 (0.6-1.4) mg/dl Est Cr Clr Drug Dosing 61.4 ml/min Est GFR ( Amer) 61.2 Est GFR (Non-Af Amer) 52.8 BUN/Creatinine Ratio 20.9 H (10-20) Glucose 134 H (70-99) mg/dl Calcium 8.9 (8.5-10.1) mg/dl Total Bilirubin 1.0 (0.2-1) mg/dl AST 11 L (15-37) U/L ALT 17 (12-78) U/L Alkaline Phosphatase 119 H (45-117) U/L Troponin I < 0.015 (0-0.045) ng/ml Total Protein 8.3 H (6.4-8.2) gm/dl Albumin 3.8 (3.4-5.0) gm/dl Globulin 4.5 H (2.5-4.0) gm/dl Albumin/Globulin Ratio 0.8 L (0.9-2) Lipase 124 (73-393) U/L Specimen Hemolysis Urine Color Urine Appearance (Clear) Urine pH (4.5-7.5) Ur Specific [place] (1.000-1.030) Urine Protein (Negative) Urine Glucose (UA) (Negative) Urine Ketones (Negative) Urine Blood (Negative) Urine Nitrite (Negative) Urine Bilirubin (Negative) Urine Urobilinogen (Negative) Ur Leukocyte Esterase (Negative) Urine WBC (Auto) (0-5) /hpf Urine RBC (Auto) (0-4) /hpf U Hyaline Cast (Auto) (0-5) /lpf U Epithel Cells (Auto) (0-5) /lpf Urine Bacteria (Auto) (Negative) Urine Mucus (None Prsent) 10/27/18 Range/Units 23:32 WBC (4.8-10.8) K/uL RBC (4.7-6.1) M/uL Hgb (14.0-18.0) g/dL Hct (42-52) % MCV (80-100) fL MCH (25-34) pg MCHC (32-36) g/dL RDW Std Deviation (36.4-46.3) fL RDW Coeff of Yuri (11.5-14.5) % Plt Count (130-400) K/uL MPV (7.4-10.4) fL Immature Gran % (Auto) % Neut % (Auto) % Lymph % (Auto) % [place] % (Auto) % Eos % (Auto) % Baso % (Auto) % Immature Gran # (Auto) (0.00-0.02) K/uL Neut # (Auto) (1.4-6.5) K/uL Lymph # (Auto) (1.2-3.4) K/uL [place] # (Auto) (0.11-0.59) K/uL Eos # (Auto) (0-0.5) K/uL Baso # (Auto) (0-0.2) K/uL PT (9.0-12.0) Seconds INR (0.9-1.1) APTT (21.0-31.0) Seconds PTT Ratio Sodium (136-145) mmol/L Potassium (3.5-5.1) mmol/L Chloride (98-107) mmol/L Carbon Dioxide (21-32) mmol/L Anion Gap (3-11) BUN (7-18) mg/dl Creatinine (0.6-1.4) mg/dl Est Cr Clr Drug Dosing ml/min Est GFR ( Amer) Est GFR (Non-Af Amer) BUN/Creatinine Ratio (10-20) Glucose (70-99) mg/dl Calcium (8.5-10.1) mg/dl Total Bilirubin (0.2-1) mg/dl AST (15-37) U/L ALT (12-78) U/L Alkaline Phosphatase (45-117) U/L Troponin I (0-0.045) ng/ml Total Protein (6.4-8.2) gm/dl Albumin (3.4-5.0) gm/dl Globulin (2.5-4.0) gm/dl Albumin/Globulin Ratio (0.9-2) Lipase (73-393) U/L Specimen Hemolysis Urine Color Dark Yellow Urine Appearance Cloudy A (Clear) Urine pH 5.0 (4.5-7.5) Ur Specific [place] 1.033 H (1.000-1.030) Urine Protein 1+ H (Negative) Urine Glucose (UA) Negative (Negative) Urine Ketones Trace H (Negative) Urine Blood Negative (Negative) Urine Nitrite Negative (Negative) Urine Bilirubin Negative (Negative) Urine Urobilinogen Negative (Negative) Ur Leukocyte Esterase Negative (Negative) Urine WBC (Auto) 1-5 (0-5) /hpf Urine RBC (Auto) 0-4 (0-4) /hpf U Hyaline Cast (Auto) 1-5 (0-5) /lpf U Epithel Cells (Auto) 10-20 H (0-5) /lpf Urine Bacteria (Auto) Negative (Negative) Urine Mucus Present A (None Prsent) Administered Medications Sodium Chloride (Nss 1000ml) 1,000 mls @ 125 mls/hr IV .Q8H STA Stop: 10/28/18 06:55 Last Admin: 10/27/18 23:45 Dose: 125 mls/hr Documented by: [id number] Discontinued Medications Famotidine (Pepcid 20mg Iv Push) 20 mg IV ONE STA Stop: 10/27/18 22:57 Last Admin: 10/27/18 23:10 Dose: 20 mg Documented by: [id number] Sodium Chloride (Nss 1000ml) 500 mls @ 999 mls/hr IV .Q31M ONE Stop: 10/27/18 23:26 Last Infusion: 10/27/18 23:42 Dose: 0 mls/hr Documented by: [id number] Admin: 10/27/18 23:10 Dose: 999 mls/hr Documented by: [id number] Pantoprazole Sodium 40 mg/ (Syringe) 10 mls @ 5 mls/min IV NOW STA Stop: 10/28/18 00:11 Last Admin: 10/28/18 00:20 Dose: 5 mls/min Documented by: [id number] Ondansetron HCl (Zofran) 4 mg IV NOW STA Stop: 10/27/18 22:57 Last Admin: 10/27/18 23:10 Dose: 4 mg Documented by: [id number] Imaging Data Radiologist's Impression: Radiology results as stated below per my review and the radiologist's interpretation: CT ABDOMEN & PELVIS Without Contrast: Comparison: CT abdomen and pelvis 12/09/17 and MRI abdomen 12/23/17 Findings consistent with small bowel obstruction. Dilated proximal small bowel loops and decompressed distal small bowel loops. Transition to decompressed bowel without single focal transition point in right mid to lower abdomen. Trace free fluid in pelvis. No free air 3 mm nonobstructing right renal stone. No hydronephrosis. Multiple renal lesions are similar to prior. Previous MRI of recommended follow- up MRI with contrast to better evaluate right upper pole lesion. Post interval cholecystectom. 3.2 x 1.9 x 2.1 cm low-density lesion in region of gallbladder fossa may represent postoperative seroma, but evaluation limited by lack of intravenous contrast. No adjacent enhanced exam. Normal appendix. small fat-containing right inguinal hernia. Radiologist: Kevyn Mcgarry MD study read at 00:02 and initial results transmitted at 00:24 ECG Data Attestation: I personally reviewed and interpreted this ECG as follows: Indication: abdominal pain Rate (beats per minute): 68 Findings: + other (LVH) and + nonspecific-ST abn; no ST depression and no ST elevation Blood Pressure Blood Pressure Findings: Elevated blood pressure Blood Pressure Disposition: further management by hospitalist Discharge Plan Visit Data Chief Complaint: Flu Like Symptoms Stated Complaint: FLU ED Provider: Blu Altamirano Discharge Problem: Upper gastrointestinal bleeding, Leukocytosis, Abdominal pain, epigastric, Bowel obstruction Discharge Instructions Interventions: ED Discharge Assessment Last Done: 10/28/18 02:08 Forms Stand Alone Forms: My [facility] [employer] Prescriptions Prescriptions: No Action pantoprazole 40 mg tablet,delayed release (DR/EC) 40 mg PO DAILY Qty: 30 RF: 11 metoprolol tartrate 100 mg tablet 100 mg PO BID Qty: 180 RF: 3 red yeast rice 600 mg Capsule 600 mg PO DAILY RF: 0 Referrals Referrals: Surinder Painting MD [Primary Care Provider] - Discharge Problem: Leukocytosis Qualifiers: Leukocytosis type: unspecified Qualified Code(s): D72.829 - Elevated white blood cell count, unspecified Bowel obstruction Qualifiers: Intestinal obstruction type: unspecified Intestinal obstruction extent: unspecified extent Qualified Code(s): K56.609 - Unspecified intestinal obstruction, unspecified as to partial versus complete obstruction The scribe's documentation has been prepared under my direction and personally reviewed by me in its entirety. I confirm that the note above accurately reflects all work, treatment, procedures, and medical decision making performed by me.
[2018-10-28] MEDS ORDERED: ACETAMINOPHEN 1,000 MG/100 ML VIAL IV PRN (02:31)
[2018-10-28] MEDS ORDERED: ONDANSETRON INJ 2 MG/ML 2 ML VIAL IV PRN (02:31)
[2018-10-28] MEDS ORDERED: KETOROLAC TROMETHAMINE 15 MG/ML VIAL IV PRN (02:31)
--- NOTE | 2018-10-28 02:52 | Surgery Consultation ---
Date of Consultation October 28, 2018 Assessment & Plan (1) SBO (small bowel obstruction): pt is a 63 year-old male who presents to ER with vomiting blood and abdominal pain, CT Scan dx SBO, IMP: SBO, UGI bleeding, Plan, no surgical indication now, I agree with conservative treatment first, NPO, IV fluid, IV antibiotic, GI consult, repeat labs and KUB in am, will F/U (2) Upper gastrointestinal bleeding: History of Present Illness Attending Physician: Ernie King MD Chief Complaint: abdominal pain, vomiting Primary Care Provider: Surinder Painting MD 63-year-old male with history of hypertension, GERD, hyperlipidemia and cholecystectomy 2018 presents with coffee-ground emesis and abdominal pain tonight. Patient reports diarrhea 4 days ago 2 days which resolved after he took Imodium yesterday. Reports diarrhea was initially dark but later became light in color, denies any bright red blood. He reports trying to stay hydrated with water and Gatorade and eating bland dietbagel applesauce. Today he noticed bloating and around 9 PM vomited. Vomit was dark in color no bright red blood noted. Associated with feeling hot at times and abdominal pain just above his bellybutton when he pushes on it. [place] any chills, headache, lightheadedness, cold symptoms, chest pain, shortness of breath, dysuria, hematuria. I ( Lucas Elliott MD) got a call for consult SBO, I reviewed pt's H/P with pt at bedside, pt has no abdominal pain now, pt just had BM at ER, the stool is dark color, I reviewed CT scan and all labs. Allergies Allergy/AdvReac Type Severity Reaction Status Date / Time Penicillins Allergy Severe SWELLING Verified 10/27/18 22:58 AND HIVES Home Medications Home Medications Medication Instructions Recorded Confirmed Type red yeast rice 600 mg PO DAILY 12/09/17 10/27/18 History metoprolol tartrate 100 mg tablet 100 mg PO BID #180 tab 09/05/18 10/27/18 Rx pantoprazole 40 mg tablet,delayed 40 mg PO DAILY #30 tab 09/22/18 10/27/18 Rx release Patient History Medical History Renal mass Hyperlipidemia GERD (gastroesophageal reflux disease) Uncontrolled hypertension (Acute) Gallstone pancreatitis (Acute) Acid reflux Arthritis Surgical History Status post cholecystectomy Family History Father Heart disease Mother Heart disease Diabetes Social History Preferred Language: Khmer Communication Ability: Effective Visual Impairment: Limited Foreign Student Adviser Required: No Beliefs That Will Affect Care: Rastafari Rastafari Beliefs: Catholic marital status: Current Living Situation: Spouse current occupational status: employed Feels Safe at Home: Yes Smoking Status: Never smoker Second Hand Exposure: No ; Hx Alcohol Use: No Hx Substance Use: No Review of Systems Review of Systems: All systems reviewed & are unremarkable except as noted in HPI & below Physical Exam Constitutional: WD/WN, vitals as above well developed and well nourished ENMT: external ear and nose normal, oropharynx normal Neck: trachea midline, no thyromegaly Respiratory: normal respiratory effort, lungs clear to auscultation normal respiratory effort Cardiovascular: RRR, no murmur, no edema Rate/Rhythm: regular rate and regular rhythm Gastrointestinal (Abdomen): normal bowel sounds, soft, nontender, no he patosplenomegaly NT, ND, BS +, Musculoskeletal: no cyanosis or clubbing, extremities motor strength 5/5 Skin: no rashes, warm and dry Neurologic: patellar DTR's 2+ bilat, sensation intact Psychiatric: A+Ox3, euthymic affect Orientation: alert and oriented x 3 Results & Data Vital Signs (Past 12 Hours) Vital Signs Temp Pulse Pulse Resp BP BP Pulse Ox 10/28/18 02:00 70 18 192/114 H 93 10/28/18 01:44 72 21 213/110 H 93 10/27/18 23:58 67 18 180/97 H 93 10/27/18 22:31 95 10/27/18 22:19 36.8 C 76 16 152/96 H 97 Laboratory Results Abnormal lab results 10/27/18 10/27/18 10/27/18 Range/Units 22:38 22:38 23:32 WBC 19.86 H (4.8-10.8) K/uL RBC 6.17 H (4.7-6.1) M/uL MCV 79.6 L (80-100) fL MPV 11.3 H (7.4-10.4) fL Immature Gran # (Auto) 0.06 H (0.00-0.02) K/uL Neut # (Auto) 17.30 H (1.4-6.5) K/uL [place] # (Auto) 1.00 H (0.11-0.59) K/uL BUN 29 H (7-18) mg/dl BUN/Creatinine Ratio 20.9 H (10-20) Glucose 134 H (70-99) mg/dl AST 11 L (15-37) U/L Alkaline Phosphatase 119 H (45-117) U/L Total Protein 8.3 H (6.4-8.2) gm/dl Globulin 4.5 H (2.5-4.0) gm/dl Albumin/Globulin Ratio 0.8 L (0.9-2) Urine Appearance Cloudy A (Clear) Ur Specific [place] 1.033 H (1.000-1.030) Urine Protein 1+ H (Negative) Urine Ketones Trace H (Negative) U Epithel Cells (Auto) 10-20 H (0-5) /lpf Urine Mucus Present A (None Prsent) Diagnostic Findings CT abdomen: SBOdilated proximal SB loops and decompressed distal SB loops without a single focal transition point in right mid to lower abdomen.
[2018-10-28] MEDS ORDERED: metroNIDAZOLE 500 MG/100 ML BAG IV SCH (03:00)
[2018-10-28] MEDS ORDERED: CIPROFLOXACIN 400 MG/200 ML BAG IV SCH (03:00)
[2018-10-28] MEDS: CIPROFLOXACIN 400 MG/200 ML BAG IV SCH ×2 (03:22→15:03)
[2018-10-28] MEDS: metroNIDAZOLE 500 MG/100 ML BAG IV SCH ×3 (03:32→19:13)
[2018-10-28] MEDS: HydrALAZINE HCL 20 MG/ML VIAL IV PRN (03:40)
[2018-10-28] MEDS ORDERED: DiphenhydrAMINE HCL 50 MG/ML VIAL IV STA (03:55)
[2018-10-28] MEDS ORDERED: DiphenhydrAMINE HCL 50 MG/ML VIAL ONE (04:03)
[2018-10-28 07:09] LABS: Hematocrit (blood only) 49.3 % (42-52); Hemoglobin 16.5 g/dL (14.0-18.0); Mean Corpuscular Hgb Conc 33.5 g/dL (32-36); Mean Platelet Volume 11.6 fL (7.4-10.4); Nucleated RBC # (auto) 0.02 K/uL (0-0); Nucleated RBC % (auto) 0.1 %; Platelet Count 302 K/uL (130-400); RDW Coefficient of Variation 13.6 % (11.5-14.5); RDW Standard Deviation 39.3 fL (36.4-46.3); Red Blood Count 6.16 M/uL (4.7-6.1); White Blood Count 24.26 K/uL (4.8-10.8)
[2018-10-28 07:44] LABS: Albumin Level 3.2 gm/dl (3.4-5.0); BUN Creatinine Ratio 22.1 (10-20); Calcium 8.3 mg/dl (8.5-10.1); Creatinine Clr Calc Pharmacy 63.9 ml/min; Est GFR (African American) 64.6; Est GFR (Non-African American) 55.7; Potassium 4.3 mmol/L (3.5-5.1)
[2018-10-28 07:47] LABS: Albumin Globulin Ratio 0.8 (0.9-2); Bilirubin,Total 0.9 mg/dl (0.2-1); Globulin 3.8 gm/dl (2.5-4.0)
[2018-10-28 08:01] LABS: Basophils # (auto) 0.02 K/uL (0-0.2); Basophils % (auto) 0.1 %; Eosinophils # (auto) 0.07 K/uL (0-0.5); Eosinophils % (auto) 0.3 %; Immature Granulocytes # (auto) 0.06 K/uL (0.00-0.02); Immature Granulocytes % (auto) 0.2 %; Lymphocytes # (auto) 2.11 K/uL (1.2-3.4); Lymphocytes % (auto) 8.7 %; Monocytes # (auto) 1.28 K/uL (0.11-0.59); Monocytes % (auto) 5.3 %; Neutrophils # (auto) 20.72 K/uL (1.4-6.5); Neutrophils % (auto) 85.4 %
--- NOTE | 2018-10-28 08:08 | CT Scan Report ---
ABDOMEN AND PELVIS CT WITHOUT CONTRAST CT DOSE: 764.21 mGy.cm HISTORY: Acute vomiting with upper abdominal pain and history of renal failure upper abd pain, vomit ing, gi bleed, h/o ARF TECHNIQUE: Multiaxial CT images of the abdomen and pelvis were performed without contrast. A dose lo wering technique was utilized adhering to the principles of ALARA. COMPARISON STUDY: CT abdomen and pelvis 12/09/2017, MRI of the abdomen 12/23/2017 FINDINGS: Subsegmental bibasilar opacities suggest admixture of fibrosis with atelectasis. There is no pneumato sis or pneumoperitoneum. Cardiomegaly with aortic annular calcifications. No pericardial effusion. Li mited evaluation of the solid abdominal organs without the use of IV contrast. Multiple hypodense les ions of the liver redemonstrated suggestive of previously reported admixture of hepatic cysts and hem angiomata. Cholecystectomy. 3.3 x 1.8 cm cystic focus of the rancho hepatis is noted on image 19 of se ember 2. Lesion of the inferior right hepatic lobe measuring up to 5.7 cm redemonstrated. Spleen, panc reas and adrenal glands are unremarkable. 1.2 cm intermediate attenuating exophytic lesion of the sup erior pole right kidney redemonstrated. Mild nonspecific bilateral perinephric stranding. Complex exo phytic cyst with calcified septations again noted about the superior pole left kidney measuring up to 2.6 cm. Nonobstructing 4 mm calculus of the inferior pole right kidney. No ureteral calculi or obstr uctive uropathy. Partial distention of the urinary bladder. Prostamegaly. Small fat filled right [place] umbilical hernia. Calcified plaque of the aorta without aneurysm. No adenopathy. Distended air and fluid-filled distal esophagus with distal esophageal wall thickening. The stomach i s distended, air and fluid-filled. Multiple dilated air and fluid-filled loops of small bowel are see n throughout the central abdomen with decompressed small bowel seen distally. Clonic diverticulosis w ithout acute diverticulitis. There is mild gaseous distention of the transverse colon. Air-fluid leve ls are seen within the right hemicolon. Normal appendix. No discrete transition point is not identifi ed. Tiny fat filled periumbilical hernia. Soft tissues are unremarkable. The bones appear to be intac t. IMPRESSION: 1. Distended stomach with multiple dilated air and fluid-filled loops of small bowel within the midab domen are noted in conjunction with decompressed distal loops of small bowel. There is however mild g aseous distention of the transverse colon. Finding are suggestive of a probable partial small bowel o bstruction. Follow-up recommended. 2. No pneumatosis or pneumoperitoneum. 3. Normal appendix. 4. Nonobstructing right nephrolithiasis. 5. Cholecystectomy. Ovoid cystic focus of the rancho hepatis measuring up to 3.3 cm may reflect residu al gallbladder versus small postoperative fluid collection. 6. Additional findings as above. Electronically signed by: Travis Da Silva M.D. 10/28/2018 8:06 AM
[2018-10-28] MEDS: FAMOTIDINE 20 MG in SYRINGE 3 ML IV SCH ×2 (10:43→20:19)
[2018-10-28 11:19] LABS: Magnesium 1.9 mg/dl (1.8-2.4); Phosphorus 3.7 mg/dl (2.5-4.9)
--- NOTE | 2018-10-28 12:58 | Surgery Progress Note ---
Date of Service pt feels better, less abdominal pain, passed some gas, no nausea, no vomiting, October 28, 2018 Assessment & Plan (1) SBO (small bowel obstruction): pt is a 63 year-old male who presents to ER with vomiting blood and abdominal pain, CT Scan dx SBO, IMP: SBO, UGI bleeding, Plan, no surgical indication now, I agree with conservative treatment first, NPO, IV fluid, IV antibiotic, GI consult, repeat labs and KUB in am, will F/U 10/28/2018 12:58PM doing better, continue treatment, pt asked Dr. Amador to be his surgeon, pt will be cover by second facing baster surgeon Dr. Amador over weekend. (2) Upper gastrointestinal bleeding: Physical Exam Constitutional: WD/WN, vitals as above well developed and well nourished ENMT: external ear and nose normal, oropharynx normal Neck: trachea midline, no thyromegaly Respiratory: normal respiratory effort, lungs clear to auscultation normal respiratory effort Cardiovascular: RRR, no murmur, no edema Rate/Rhythm: regular rate and regular rhythm Gastrointestinal (Abdomen): normal bowel sounds, soft, nontender, no hepatosplenomegaly Musculoskeletal: no cyanosis or clubbing, extremities motor strength 5/5 Skin: no rashes, warm and dry Neurologic: patellar DTR's 2+ bilat, sensation intact Psychiatric: A+Ox3, euthymic affect Orientation: alert and oriented x 3 Results & Data Vital Signs (Past 12 Hours) Vital Signs Temp Pulse Pulse Resp BP Pulse Ox 10/28/18 11:34 36.6 C 65 20 119/77 91 10/28/18 07:54 36.9 C 71 18 113/76 94 10/28/18 04:19 73 10/28/18 03:42 36.6 C 72 21 189/127 H 92 10/28/18 02:00 70 18 192/114 H 93 10/28/18 01:44 72 21 213/110 H 93
--- NOTE | 2018-10-28 19:48 | Hospitalist Progress Note ---
Date of Service October 28, 2018 Assessment & Plan (1) SBO (small bowel obstruction): Abdominal pain secondary to above Tolerating nasogastric tube well Base gas yesterday Abdomen abdominal pain improved Surgical consult appreciated Continue conservative management Continue IV fluid hydration (2) Upper gastrointestinal bleeding: Unfortunately Protonix was not back order, received 1 dose of Protonix IV then placed on Pepcid 20 mg IV twice daily GI consultation Hemoglobin is stable No active bleeding (3) Leukocytosis: Sepsis present on admission Possible gastrointestinal source Patient was on Cipro and Flagyl and developed allergic reaction with rash Unfortunately have penicillin allergy with hives Start ertapenem and stop both Cipro and Flagyl, since it was very mild rash and offending drug is unknown we will not add this to his allergy list (4) Abdominal pain, epigastric: Pain management, as above Subjective Feeling slightly better Still having coffee-ground substance in the canister from the nasogastric tube Abdominal pain significantly improved Had gas yesterday but not today Review of Systems Review of Systems: Review of system Constitutional: No fever / no chills / no sweats / no weakness / no fatigue Eyes: no blurring of vision / no eye pain / no discharge / no redness ENT: no hearing loss / no epistaxis /no swallowing problems Respiratory: no cough / no wheezing / no SOB / no hemoptysis Cardiovascular: no Chest pain / no lower extremity edema / no palpitation Abdomen: Severe constipation and moderate generalized abdominal Musculoskeletal: no joint pain / no muscle pain / no joint swelling Genitourinary: no dysuria / no incontinence / no urinary retention Neurologic: no focal weakness / no numbness/tingling / no ataxia Psychiatric: no depression symptoms / no anxiety / no insomnia Endocrine: no excessive thirst / no excessive urination Hematologic: no abnormal bleeding / no bruising / no LN swelling Skin: No rash / no pallor Physical Exam Physical Exam: Physical examination General patient appears to be comfortable, not in acute distress HEENT: Atraumatic , normocephalic /no jaundice /no pallor /anicteric /no dry mucous membrane /normal external ear inspection Neck: Supple /no swelling /central trach Heart: S1/S2 normal/regular rate and rhythm/no gallop /no rub /no murmur Lungs: Clear to auscultation bilaterally/normal chest with expansion/no rhonchi/no rales/no wheezing/no use of accessory muscles of respiration Abdomen: Generalized tenderness but overall abdomen is soft, no swelling or guarding Musculoskeletal: No swelling/no edema/no tenderness/normal range of motion Neuro exam: Awake alert oriented 3/cranial nerves II through XII appear to be intact/sensation intact/moves all extremities/no abnormal movements Psychiatric evaluation: No depressed mood/normal affect Skin: No rash on exposed skin area/no erythema Extremity: Normal pulse/no pitting edema/no clubbing or cyanosis Endocrine/lymphatic: No obvious lymphadenopathy /no lymphedema Results & Data Vital Signs (Past 12 Hours) Vital Signs Temp Pulse Pulse Resp BP Pulse Ox 10/28/18 19:40 36.8 C 75 18 127/81 93 10/28/18 16:23 36.3 C L 72 18 119/77 91 10/28/18 14:56 71 10/28/18 11:34 36.6 C 65 20 119/77 91 10/28/18 07:54 36.9 C 71 18 113/76 94 PG Care Time/CCT Total # of Minutes Spent Total Time Spent with Patient: Total time spent is greater than 50% in coordination of care (as documented) at patient's floor/unit and/or counseling patient: (1) Leukocytosis Leukocytosis type: unspecified Qualified Code(s): D72.829 - Elevated white blood cell count, unspecified
[2018-10-28] MEDS ORDERED: MoRPHine SULFATE 2 MG/ML CARP IV PRN (19:49)
[2018-10-28] MEDS ORDERED: SODIUM CHLORIDE 0.9% 1000ML 1,000 ML IV SCH ×2 (20:00→20:15)
[2018-10-28] MEDS: ERTAPENEM SODIUM 1,000 MG in SODIUM CHLORIDE 0.9% 50 ML IV SCH (20:18)
[2018-10-28] MEDS ORDERED: Nursing to Pharmacy Communication ONE (23:53)
--- NOTE | 2018-10-29 07:24 | Surgery Progress Note ---
Date of Service October 29, 2018 Assessment & Plan (1) SBO (small bowel obstruction): min from NG- he feels ok some flatus no pain will d/c NG and try clear liquids ambulate cont atbx Results & Data Vital Signs (Past 12 Hours) Vital Signs Temp Pulse Pulse Resp BP Pulse Ox 10/29/18 07:03 36.8 C 73 18 144/81 H 93 10/29/18 05:31 74 10/29/18 04:40 36.4 C L 79 18 126/70 92 10/28/18 23:53 37 C 82 18 136/77 91 10/28/18 19:40 36.8 C 75 18 127/81 93 PG Care Time/CCT Total # of Minutes Spent Total Time Spent with Patient: Total time spent is greater than 50% in coordination of care (as documented) at patient's floor/unit and/or counseling patient:
--- NOTE | 2018-10-29 08:10 | History & Physical Report ---
Date of Service October 29, 2018 Assessment & Plan (1) SBO (small bowel obstruction): Patient presented with a small bowel obstruction. GI is consulted with a question of coffee-ground return from his NG tube. It appears that the patient's blood count has been stable over several days which is very reassuring. I suspect the coffee during return was related to the small bowel obstruction and likely represented gastritis. As the labs have remained unchanged and the patient has had no hematemesis nor melena he does not appear to have evidence of an active gastrointestinal hemorrhage at the present time. Recommendations Restart Protonix 40 mg 1 times daily orally Continue with H2 davis intravenously twice daily while inpatient Please call with any questions or concerns, GI to sign off for the present time. History of Present Illness Chief Complaint: Coffee-ground return and an nasogastric tube Primary Care Provider: Surinder Painting MD The patient is a 63-year-old male who presented to the emergency room on October 27 for evaluation of abdominal discomfort, abdominal distention and several episodes of emesis. The patient notes that the emesis seemed to contain dark material but had no red clots. Similarly the patient has had no bowel movements and notes no dark sticky stool. The patient underwent a CT scan and was found to have evidence of of small bowel obstruction in addition to gastric distention. He notes that today he is feeling much better and he had his nasogastric tube removed shortly before my arrival this morning. Patient denies having fevers, chills sweats or abdominal pain at the present time. He notes that he is passing some gas but has had no bowel movements at the present time. There have been no reported episodes of emesis over the past 24 hours. Patient believes that the coffee-ground material had cleared shortly after the nasogastric tube was placed. The patient's past medical history is notable for colonic polyps which were removed by Dr. Marion several years ago. He has also had a prior upper endoscopy with the same provider due to dysphagia on 01-11-17. This exam was notable for grade 3 esophagitis and an esophageal ring which was dilated. The patient was placed on to Protonix 40 mg/day. He notes that since that time his heparin has been well controlled. The patient denies taking medication such as Motrin, ibuprofen or Aleve at home. Allergies Allergy/AdvReac Type Severity Reaction Status Date / Time Penicillins Allergy Severe SWELLING Verified 10/27/18 22:58 AND HIVES Home Medications Home Medications Medication Instructions Recorded Confirmed Type red yeast rice 600 mg PO DAILY 12/09/17 10/27/18 History metoprolol tartrate 100 mg tablet 100 mg PO BID #180 tab 09/05/18 10/27/18 Rx pantoprazole 40 mg tablet,delayed 40 mg PO DAILY #30 tab 09/22/18 10/27/18 Rx release Past Med/Surg History Medical History Renal mass Hyperlipidemia GERD (gastroesophageal reflux disease) Uncontrolled hypertension (Acute) Gallstone pancreatitis (Acute) Acid reflux Arthritis Surgical History Status post cholecystectomy Family History Father Heart disease Mother Heart disease Diabetes Social History Preferred Language: Bulgarian Communication Ability: Effective Visual Impairment: Limited Relief Driller Required: No Beliefs That Will Affect Care: None marital status: Current Living Situation: Spouse current occupational status: employed Other Information That Helps Us Care for You: No Feels Safe at Home: Yes Safety Concerns: Feels Safe At This Time Smoking Status: Never smoker Second Hand Exposure: No ; Hx Alcohol Use: No Hx Substance Use: No Review of Systems no fever and no sweats no diplopia + ear trauma; no nasal discharge no change in sputum and no hemoptysis no chest pain with activity and no dyspnea at rest + bloating; no abdominal pain, no early satiety, no nausea and no vomiting no urinary frequency no radicular pain no falls no hopelessness no polydipsia no coagulopathy Physical Exam Constitutional: well developed and average body habitus; not ill appearing Eyes: PERRL, conjunctivae normal, anicteric sclerae Neck: trachea midline, no thyromegaly Respiratory: normal respiratory effort, lungs clear to auscultation Cardiovascular: RRR, no murmur, no edema Gastrointestinal (Abdomen): Inspection/Auscultation: abdomen not distended Percussion/Palpation: abdomen soft; abdomen nontender and no guarding Skin: no rashes, warm and dry Neurologic: Speech / Cognition: normal speech Motor/Sensory: no tremor Results & Data Vital Signs (Past 12 Hours) Vital Signs Temp Pulse Pulse Resp BP Pulse Ox 10/29/18 07:03 36.8 C 73 18 144/81 H 93 10/29/18 05:31 74 10/29/18 04:40 36.4 C L 79 18 126/70 92 10/28/18 23:53 37 C 82 18 136/77 91 Diagnostic Findings ABDOMEN AND PELVIS CT WITHOUT CONTRAST CT DOSE: 764.21 mGy.cm HISTORY: Acute vomiting with upper abdominal pain and history of renal failure upper abd pain, vomiting, gi bleed, h/o ARF TECHNIQUE: Multiaxial CT images of the abdomen and pelvis were performed without contrast. A dose lowering technique was utilized adhering to the principles of ALARA. COMPARISON STUDY: CT abdomen and pelvis 12/09/2017, MRI of the abdomen 12/23/2017 FINDINGS: Subsegmental bibasilar opacities suggest admixture of fibrosis with atelectasis. There is no pneumatosis or pneumoperitoneum. Cardiomegaly with aortic annular calcifications. No pericardial effusion. Limited evaluation of the solid abdominal organs without the use of IV contrast. Multiple hypodense lesions of the liver redemonstrated suggestive of previously reported admixture of hepatic cysts and hemangiomata. Cholecystectomy. 3.3 x 1.8 cm cystic focus of the rancho hepatis is noted on image 19 of series 2. Lesion of the inferior right hepatic lobe measuring up to 5.7 cm redemonstrated. Spleen, pancreas and adrenal glands are unremarkable. 1.2 cm intermediate attenuating exophytic lesion of the superior pole right kidney redemonstrated. Mild nonspecific bilateral perinephric stranding. Complex exophytic cyst with calcified septations again noted about the superior pole left kidney measuring up to 2.6 cm. Nonobstructing 4 mm calculus of the inferior pole right kidney. No ureteral calculi or obstructive uropathy. Partial distention of the urinary bladder. Prostamegaly. Small fat filled right periumbilical hernia. Calcified plaque of the aorta without aneurysm. No adenopathy. Distended air and fluid-filled distal esophagus with distal esophageal wall thickening. The stomach is distended, air and fluid-filled. Multiple dilated air and fluid-filled loops of small bowel are seen throughout the central abdomen with decompressed small bowel seen distally. Clonic diverticulosis without acute diverticulitis. There is mild gaseous distention of the transverse colon. Air- fluid levels are seen within the right hemicolon. Normal appendix. No discrete transition point is not identified. Tiny fat filled periumbilical hernia. Soft t issues are unremarkable. The bones appear to be intact. IMPRESSION: 1. Distended stomach with multiple dilated air and fluid-filled loops of small bowel within the midabdomen are noted in conjunction with decompressed distal loops of small bowel. There is however mild gaseous distention of the transverse colon. Finding are suggestive of a probable partial small bowel obstruction. Follow-up recommended. 2. No pneumatosis or pneumoperitoneum. 3. Normal appendix. 4. Nonobstructing right nephrolithiasis. 5. Cholecystectomy. Ovoid cystic focus of the rancho hepatis measuring up to 3.3 cm may reflect residual gallbladder versus small postoperative fluid collection. 6. Additional findings as above. Code Status & VTE Plan VTE Prophylaxis Plan VTE Prophylaxis will be ordered: Yes
[2018-10-29] MEDS: FAMOTIDINE 20 MG in SYRINGE 3 ML IV SCH ×2 (08:42→19:37)
[2018-10-29] MEDS: PANTOprazole 40 MG TAB PO SCH (09:11)
--- NOTE | 2018-10-29 16:15 | Hospitalist Progress Note ---
Date of Service October 29, 2018 Assessment & Plan (1) Upper gastrointestinal bleeding: Unfortunately Protonix was not back order, received 1 dose of Protonix IV then placed on Pepcid 20 mg IV twice daily GI consultation appreciated Dr. Gallardo started Protonix 40 mg oral daily plus the H2 davis IV Hemoglobin is stable No active bleeding Upper GI bleed is most likely secondary to small bowel obstruction or gastritis Dr. Gallardo from GI signed off as patient hemoglobin remained stable (2) Leukocytosis: Sepsis present on admission Possible gastrointestinal source Patient was on Cipro and Flagyl and developed allergic reaction with rash Unfortunately have penicillin allergy with hives Start ertapenem and stop both Cipro and Flagyl, since it was very mild rash and offending drug is unknown we will not add this to his allergy list Repeat CBC in a.m. (3) Abdominal pain, epigastric: Pain management, as above (4) HTN (hypertension): Slightly elevated but not alarming (5) Status post cholecystectomy: (6) Hyperlipidemia: (7) GERD (gastroesophageal reflux disease): (8) SBO (small bowel obstruction): Abdominal pain secondary to above Started oral diet and tolerated it well, clear liquids but no bowel movement yet Abdomen abdominal pain improved Surgical consult appreciated Continue conservative management Continue IV fluid hydration for now until he can get adequate oral intake Subjective Feeling better today Abdominal pain improved No vomiting or nausea Started on oral diet and tolerated it well No bowel movement yet Review of Systems Review of Systems: Review of system Constitutional: No fever / no chills / no sweats / no weakness / no fatigue Eyes: no blurring of vision / no eye pain / no discharge / no redness ENT: no hearing loss / no epistaxis /no swallowing problems Respiratory: no cough / no wheezing / no SOB / no hemoptysis Cardiovascular: no Chest pain / no lower extremity edema / no palpitation Abdomen: no pain / no nausea / no vomiting / no constipation Musculoskeletal: no joint pain / no muscle pain / no joint swelling Genitourinary: no dysuria / no incontinence / no urinary retention Neurologic: no focal weakness / no numbness/tingling / no ataxia Psychiatric: no depression symptoms / no anxiety / no insomnia Endocrine: no excessive thirst / no excessive urination Hematologic: no abnormal bleeding / no bruising / no LN swelling Skin: No rash / no pallor Physical Exam Physical Exam: Physical examination General patient appears to be comfortable, not in acute distress HEENT: Atraumatic , normocephalic /no jaundice /no pallor /anicteric /no dry mucous membrane /normal external ear inspection Neck: Supple /no swelling /central trach Heart: S1/S2 normal/regular rate and rhythm/no gallop /no rub /no murmur Lungs: Clear to auscultation bilaterally/normal chest with expansion/no rhonchi/no rales/no wheezing/no use of accessory muscles of respiration Abdomen: Soft/nontender/no guarding/no rebound/no organomegaly/no pulsatile mass Musculoskeletal: No swelling/no edema/no tenderness/normal range of motion Neuro exam: Awake alert oriented 3/cranial nerves II through XII appear to be intact/sensation intact/moves all extremities/no abnormal movements Psychiatric evaluation: No depressed mood/normal affect Skin: No rash on exposed skin area/no erythema Extremity: Normal pulse/no pitting edema/no clubbing or cyanosis Endocrine/lymphatic: No obvious lymphadenopathy /no lymphedema Results & Data Vital Signs (Past 12 Hours) Vital Signs Temp Pulse Pulse Resp BP Pulse Ox 10/29/18 15:37 79 10/29/18 15:27 36.9 C 66 20 160/85 H 95 10/29/18 09:07 64 10/29/18 07:03 36.8 C 73 18 144/81 H 93 10/29/18 05:31 74 10/29/18 04:40 36.4 C L 79 18 126/70 92 PG Care Time/CCT Total # of Minutes Spent Total Time Spent with Patient: Total time spent is greater than 50% in coordination of care (as documented) at patient's floor/unit and/or counseling patient: (1) Leukocytosis Leukocytosis type: unspecified Qualified Code(s): D72.829 - Elevated white blood cell count, unspecified (2) Hyperlipidemia Hyperlipidemia type: other hyperlipidemia Qualified Code(s): E78.49 - Other hyperlipidemia; E78.4 - Other hyperlipidemia (3) GERD (gastroesophageal reflux disease) Esophagitis presence: esophagitis presence not specified Qualified Code(s): K21.9 - Gastro-esophageal reflux disease without esophagitis
[2018-10-29] MEDS: ERTAPENEM SODIUM 1,000 MG in SODIUM CHLORIDE 0.9% 50 ML IV SCH (19:37)
[2018-10-30 06:06] LABS: Mean Corpuscular Hgb Conc 33.3 g/dL (32-36); Mean Corpuscular Volume 80.6 fL (80-100); Platelet Count 181 K/uL (130-400); RDW Coefficient of Variation 13.5 % (11.5-14.5); RDW Standard Deviation 39.6 fL (36.4-46.3); Red Blood Count 4.84 M/uL (4.7-6.1); White Blood Count 9.08 K/uL (4.8-10.8)
[2018-10-30 06:32] LABS: Albumin Globulin Ratio 0.8 (0.9-2); Albumin Level 2.9 gm/dl (3.4-5.0); BUN Creatinine Ratio 14.7 (10-20); Bilirubin,Total 0.7 mg/dl (0.2-1); Calcium 8.1 mg/dl (8.5-10.1); Creatinine Clr Calc Pharmacy 77.9 ml/min; Est GFR (African American) 82.1; Est GFR (Non-African American) 70.9; Globulin 3.5 gm/dl (2.5-4.0); Magnesium 1.9 mg/dl (1.8-2.4); Potassium 3.4 mmol/L (3.5-5.1); Total Protein 6.4 gm/dl (6.4-8.2)
[2018-10-30] MEDS: HydrALAZINE HCL 20 MG/ML VIAL IV PRN (08:01)
[2018-10-30] MEDS: PANTOprazole 40 MG TAB PO SCH (08:05)
[2018-10-30] MEDS: FAMOTIDINE 20 MG in SYRINGE 3 ML IV SCH (08:06)
--- NOTE | 2018-10-30 10:31 | Surgery Progress Note ---
Date of Service October 30, 2018 Assessment & Plan (1) SBO (small bowel obstruction): bowels moving- hungry adv diet d/c when ok with medical team- possibly today f/u Dr Painting Results & Data Vital Signs (Past 12 Hours) Vital Signs Temp Pulse Pulse Resp BP Pulse Ox 10/30/18 10:16 157/89 H 10/30/18 07:50 36.5 C 65 20 170/96 H 95 10/30/18 03:38 36.7 C 72 18 168/96 H 95 10/30/18 02:55 62 10/29/18 22:42 36.9 C 62 18 160/85 H 94 PG Care Time/CCT Total # of Minutes Spent Total Time Spent with Patient: Total time spent is greater than 50% in coordination of care (as documented) at patient's floor/unit and/or counseling patient:
--- NOTE | 2018-10-30 16:24 | Discharge Summary ---
Date of Service October 30, 2018 Admission HPI Per Admitting Provider The patient is a 63-year-old male who presented to the emergency room on October 27 for evaluation of abdominal discomfort, abdominal distention and several episodes of emesis. The patient notes that the emesis seemed to contain dark material but had no red clots. Similarly the patient has had no bowel movements and notes no dark sticky stool. The patient underwent a CT scan and was found to have evidence of of small bowel obstruction in addition to gastric distention. He notes that today he is feeling much better and he had his nasogastric tube removed shortly before my arrival this morning. Patient denies having fevers, chills sweats or abdominal pain at the present time. He notes that he is passing some gas but has had no bowel movements at the present time. There have been no reported episodes of emesis over the past 24 hours. Patient believes that the coffee-ground material had cleared shortly after the nasogastric tube was placed. The patient's past medical history is notable for colonic polyps which were removed by Dr. Marion several years ago. He has also had a prior upper endoscopy with the same provider due to dysphagia on 01-11-17. This exam was notable for grade 3 esophagitis and an esophageal ring which was dilated. The patient was placed on to Protonix 40 mg/day. He notes that since that time his heparin has been well controlled. The patient denies taking medication such as Motrin, ibuprofen or Aleve at home. Principal Diagnosis Small bowel obstruction, likely adhesion Coffee-ground emesis/likely upper GI bleeding from gastritis Leukocytosis present on admission, likely reactive Essential hypertension Dyslipidemia GERD Status post cholecystectomy Discharge Exam Physical examination General patient appears to be comfortable, not in acute distress HEENT: Atraumatic , normocephalic /no jaundice /no pallor /anicteric /no dry mucous membrane /normal external ear inspection Neck: Supple /no swelling /central trach Heart: S1/S2 normal/regular rate and rhythm/no gallop /no rub /no murmur Lungs: Clear to auscultation bilaterally/normal chest with expansion/no r honchi/no rales/no wheezing/no use of accessory muscles of respiration Abdomen: Completely resolved, soft/nontender/no guarding/no rebound/no organomegaly/no pulsatile mass Musculoskeletal: No swelling/no edema/no tenderness/normal range of motion Neuro exam: Awake alert oriented 3/cranial nerves II through XII appear to be intact/sensation intact/moves all extremities/no abnormal movements Psychiatric evaluation: No depressed mood/normal affect Skin: No rash on exposed skin area/no erythema Extremity: Normal pulse/no pitting edema/no clubbing or cyanosis Discharge Data Allergies Allergy/AdvReac Type Severity Reaction Status Date / Time Penicillins Allergy Severe SWELLING Verified 10/27/18 22:58 AND HIVES Consultations 10/28/18 02:31 Consult General Surgery Routine 10/28/18 19:39 Consult Gastroenterology Routine Ordered Studies 10/27/18 22:59 CT abd pelvis wo con Urgent Hospital Course (1) Upper gastrointestinal bleeding: Intestinal obstruction with coffee-ground emesis Admitted to telemetry and started on Protonix GI consultation appreciated Dr. Gallardo started Protonix 40 mg oral daily plus the H2 davis IV Hemoglobin is stable No active bleeding Upper GI bleed is most likely secondary to small bowel obstruction or gastritis Dr. Gallardo from GI signed off as patient hemoglobin remained stable Patient requested pantoprazole to be switched to brand name Protonix upon discharge, he was giving a prescription of Protonix (2) Leukocytosis: Sepsis present on admission ruled out, likely leukocytosis was reactive, all cultures are negative Patient was on Cipro and Flagyl and developed mild allergic reaction with mild itching and rash Unfortunately have penicillin allergy with hives Stopped Cipro and Flagyl and started ertapenem since it was very mild rash and offending drug is unknown we will not add this to his allergy list Leukocytosis likely reactive, resolved quickly All antibiotics were stopped upon discharge (3) Abdominal pain, epigastric: Pain management, as above Completely resolved (4) HTN (hypertension): Slightly elevated but not alarming (5) Status post cholecystectomy: (6) Hyperlipidemia: (7) GERD (gastroesophageal reflux disease): (8) SBO (small bowel obstruction): Abdominal pain secondary to above Started oral diet and tolerated it well, clear liquids, then advance to regular diet and had a normal bowel movement Abdomen abdominal pain resolved Surgical consult appreciated, cleared for discharge home Total Time Total Time Spent Total Time Spent (In Minutes): 35 minutes total time spent is greater than 50% in coordination of care (as documented) at patient's floor/unit and/or counseling patient/family discussion of care with nursing staff Discharge Plan Discharge Items Patient Disposition: Home - Self-Care Reason For Visit: SBO,CONCERN FOR GI BLEED Discharge Diagnosis: Small bowel obstruction, likely adhesion Coffee-ground emesis/likely upper GI bleeding from gastritis Leukocytosis present on admission, likely reactive Essential hypertension Dyslipidemia GERD Status post cholecystectomy Discharge Goals: Decrease discomfort and Improve function Activity: Resume your previous activity Sexual Activity: When tolerated Exercise/Sports: Gradually increase as tolerated Driving/Machine Use: Resume 1 day after discharge Weightbearing: Full weightbearing Non-emergency contact: Primary Care Provider and Surgeon Call non-emergency contact if: you have any medication questions, your symptoms worsen and your pain is worsening Follow-up/Referrals: Surinder Painting MD [Primary Care Provider] - Diet: Regular Diet Comment: Start with soft diet like mashed potatoes and soup, advanced slowly as tolerated over the next 3 to 4 days, make sure to chew your food food well and take sips of water Addtl Provider Instructions: Continue Protonix for possible gastritis Advance your diet slowly Here symptoms review of care call 911 or come back to the ER Prescriptions: New pantoprazole 40 mg Tablet,Delayed Release (Dr/Ec) 40 mg PO QAM Qty: 30 RF: 4 Continued metoprolol tartrate 100 mg tablet 100 mg PO BID Qty: 180 RF: 3 red yeast rice 600 mg Capsule 600 mg PO DAILY RF: 0 Discontinued pantoprazole 40 mg tablet,delayed release (DR/EC) 40 mg PO DAILY Qty: 30 RF: 11 Stand-Alone Forms: [facility] Discharge Orders: Discharge Order (Routine); Ordered 10/30/18 Ordered By: Vicki Demarco Admission Data Admit Date/Time: 10/28/18 01:56 Attending Provider: Vicki Mary Admit Provider: Ernie King Primary Care Provider: Surinder Painting Other Providers: Nikos Amador ; Ernie Gallardo Service: Telemetry Medical Other Interventions: Discharge Summary Assessment (RN) Last Done: 10/30/18 16:04
== END 2018-10-30 16:26 | disposition home or self-care (01) | DRG 388 ==
LOC: ED 22:13 → SUATTDRO 10-28 01:56 → 2N 10-28 01:56